=== PATIENT | female | born 1950 | race Caucasian/White ===

== ENCOUNTER 2017-10-16 20:46 | Inpatient (IN) | payer OTHER, MEDICARE ==
[~2017-10-16] VITALS: Ht 160 cm; Wt 52.3 kg
[2017-10-16] VITALS (7 sets, daily range): BP systolic 98–126; BP diastolic 66–78; PULSE 96–105; RESP 16; TEMP 98.4; O2SAT 98–100
--- NOTE | 2017-10-16 20:59 | PD ---
HPI . Unresponsive Chief Complaint: Respiratory Distress Time Seen by Provider: 20:52 Travel History International Travel<30 days: No Contact w/Intl Traveler<30days: No Traveled to known affect area: No History of Present Illness HPI Patient is a unknown aged female found unconscious unresponsive in her bed paramedics said the fire department reported pinpoint pupils and gave her Narcan 0.4 mg without any response paramedics arrived and found her unresponsive to sternal rub decided she was unsafe airway protection was indicated patient was intubated with a 2 mg of Versed and 60 mg of etomidate then after patient was intubated without reaction patient was transported to the ER became more arousable need another 2 of Versed to keep her sedated and she was then fighting the tube when she arrives in the ER patient has inability to give history or ROS due to being intubated sedated there is a history of opioid for chronic pain possibly to 0.4 mg of Narcan took a while to have any reaction and outpatient seems to be fighting the tube but needs received sedation to protect her from fighting the tube or hurting herself propofol 50 mg boluses given and then she started on 10 mcg/kg/ minute drip will be admitted to the ICU for further eval CT had urine chest x-ray and labs [facility] Social History Tobacco Use: No Allergies-Medications (Allergen,Severity, Reaction): Coded Allergies: No Known Allergies (Verified Allergy, Unknown, 10/16/17) Reported Meds & Prescriptions Reported Meds & Active Scripts Active Reported Proventil Hfa 6.7 GM Inh (Albuterol Sulfate) 90 Mcg/Act Aer 2 Puff INH Q4-6H PRN Klonopin (Clonazepam) 1 Mg Tab 1 Mg PO BID Review of Systems ROS Limitations: Intubated, Unresponsive Physical Exam Narrative GENERAL: now awaking and struggling with ET TUBE rapidly resedated SKIN: Warm and dry. HEAD: Atraumatic. Normocephalic. EYES: Pupils equal and round. No scleral icterus. No injection or drainage. ENT: ET tube in place Mucous membranes pink and moist. NECK: Trachea midline. No JVD. CARDIOVASCULAR: Regular rate and rhythm. RESPIRATORY: coarse BS in axilla bilateral GASTROINTESTINAL: Abdomen soft, non-tender, nondistended. Hepatic and splenic margins not palpable. MUSCULOSKELETAL: Extremities without clubbing, cyanosis, or edema. No obvious deformities. NEUROLOGICAL: unresponsive then mildly struggling against the tube the resedated propofol the fentanyl / versed, then obtunded agian ( sedated) Data Data Last Documented VS Vital Signs Date Time Temp Pulse Resp B/P (MAP) Pulse Ox O2 Delivery O2 Flow Rate FiO2 10/16/17 22:06 105 16 126/78 (94) 100 Ventilator 50 10/16/17 21:00 98.4 Orders Orders Complete Blood Count With Diff (10/16/17 20:52) Comprehensive Metabolic Panel (10/16/17 20:52) Creatine Kinase (Cpk) (10/16/17 20:52) Ckmb (Isoenzyme) Profile (10/16/17 20:52) Troponin I (10/16/17 20:52) Lipase (10/16/17 20:52) Urinalysis - C+S If Indicated (10/16/17 20:52) Chest, Single Ap (10/16/17 20:52) Ct Brain W/O Iv Contrast(Rout) (10/16/17 20:52) Drug Screen, Random Urine (10/16/17 20:52) Alcohol (Ethanol) (10/16/17 20:52) Salicylates (Aspirin) (10/16/17 20:52) Tylenol (Acetaminophen) (10/16/17 20:52) Propofol 1000 Mg/100 Ml Inj (Diprivan 10 (10/16/17 21:00) Propofol 1000 Mg/100 Ml Inj (Diprivan 10 (10/16/17 21:00) Urinary Catheter Management NANDO.Q8H (10/16/17 20:56) Insert Ng Tube (10/16/17 20:56) Fentanyl Drip (Fentanyl Drip) (10/16/17 21:15) Midazolam 100 Mg/100 Ml Inj (Versed Inj) (10/16/17 21:15) Lactic Acid (10/16/17 21:40) Midazolam 100 Mg/100 Ml Inj (Versed Inj) (10/16/17 22:00) CKMB (10/16/17 21:00) CKMB% (10/16/17 21:00) Fentanyl Drip (Fentanyl Drip) (10/16/17 22:00) Ct Pulmonary Angiogram (10/16/17 ) Midazolam 50 Mg/50 Ml Inj (Versed Inj) (10/16/17 21:57) Fentanyl Drip (Fentanyl Drip) (10/16/17 21:57) Admit To Inpatient (10/16/17 ) Code Status (10/16/17 22:20) Vital Signs (Adult) NANDO.Q1H (10/16/17 22:20) Activity Bed Rest (10/16/17 22:20) Elevate Head Of Bed (10/16/17 22:20) Neuro Checks . ORDERED (10/16/17 22:20) Intake + Output Q1H (10/16/17 22:20) Bedside Glucose NANDO.BGM (10/16/17 22:20) Insert Ng Tube (10/16/17 22:20) Sodium Chlor 0.9% 1000 Ml Inj (Ns 1000 M (10/16/17 22:20) Sodium Chloride 0.9% Flush (Ns Flush) (10/16/17 22:30) Sodium Chloride 0.9% Flush (Ns Flush) (10/17/17 09:00) Lansoprazole Odt (Prevacid Odt) (10/17/17 09:00) Artificial Tears Opth Soln (Tears Natura (10/17/17 09:00) Albuterol-Ipratropium Neb (Duoneb Neb) (10/17/17 00:00) Albuterol Neb (Albuterol Neb) (10/16/17 22:30) Complete Blood Count With Diff (10/17/17 04:00) Comprehensive Metabolic Panel (10/17/17 04:00) Creatine Kinase (Cpk) (10/17/17 06:00) Troponin I (10/17/17 04:00) Troponin I (10/17/17 10:00) Act Partial Throm Time (Ptt) (10/17/17 04:00) Prothrombin Time / Inr (Pt) (10/17/17 04:00) Magnesium (Mg) (10/17/17 04:00) Phosphorus (Po4) (10/17/17 04:00) Lactic Acid (10/17/17 04:00) Sputum Culture And Gram Stain (10/16/17 22:20) Chest, Single Ap (10/17/17 ) Resp Pulse Oximetry (10/16/17 22:20) Pt Request For Service (10/16/17 22:20) Tobacco Sampler / Telemetry NANDO.Q8H (10/16/17 22:20) Scd Bilateral/Knee High NANDO.BID (10/16/17 22:20) ^ Initiate Protocol (10/16/17 22:20) Instruction (10/16/17 22:20) Nursing Information ([facility] Nursing Inform (10/16/17 22:30) Chlorhexidine 2% Cloth (Chlorhexidine 2% (10/17/17 04:00) Chlorhexidine 2% Cloth (Chlorhexidine 2% (10/16/17 22:30) Mrsa Pcr Surveillance (10/16/17 22:20) Docusate Sodium-Senna (Patsy-Colace) (10/17/17 09:00) Magnesium Hydroxide Liq (Milk Of Magnesi (10/16/17 22:30) Sennosides (Senokot) (10/16/17 22:30) Bisacodyl Supp (Dulcolax Supp) (10/16/17 22:30) Lactulose Liq (Lactulose Liq) (10/16/17 22:30) Inpatient Certification (10/16/17 ) Influenzae A/B Antigen (10/16/17 22:23) Blood Culture (10/16/17 22:23) Place Ng Tube To Low Intermit (10/16/17 22:23) Bedside Glucose NANDO.Q6H (10/16/17 22:23) Blood Glucose Goal (Criteria) (10/16/17 22:23) Hypoglycemia 70 Mg/Dl Or < (10/16/17 22:23) Notify Dr: Other (10/16/17 22:23) Dextrose 50% In [place]ike (Vial) Inj (D50w (Vi (10/16/17 22:30) Glucagon Inj (Glucagon Inj) (10/16/17 22:30) Insulin Human Reg Supp Scale (Novolin R (10/17/17 00:00) Acetaminophen 650 Mg/20 Ml Liq (Tylenol (10/16/17 22:30) ^ Medication Admin Instruction (10/16/17 22:24) Notify Dr: Other (10/16/17 22:24) Potassium Chlor 40 Meq Premix (Kcl 40 Me (10/16/17 22:30) Potassium Chlor 20 Meq Premix (Kcl 20 Me (10/16/17 22:30) Potassium Chloride Eff (K-Lyte Cl Eff) (10/16/17 22:30) Potassium Chlor 40 Meq Premix (Kcl 40 Me (10/16/17 22:30) Potassium Chlor 20 Meq Premix (Kcl 20 Me (10/16/17 22:30) Magnesium Sulfate Inj (Magnesium Sulfate (10/16/17 22:30) Magnesium Oxide (Mag-Ox) (10/16/17 22:30) Magnesium Sulfate Inj (Magnesium Sulfate (10/16/17 22:30) Potassium Phosphate (K-Phos) (10/16/17 22:30) Sodium Phosphate Inj (Sodium Phosphate I (10/16/17 22:30) Potassium Phosphate (K-Phos) (10/16/17 22:30) Potassium Phosphate Inj (Potassium Phosp (10/16/17 22:30) Cefepime Inj (Maxipime Inj) (10/16/17 22:30) Azithromycin Inj (Zithromax Inj) (10/16/17 23:00) Elevate Head Of Bed (10/16/17 22:25) Chlorhexidine 0.12% Liq (Peridex 0.12% L (10/17/17 08:00) Oral Hygiene Kit (10/17/17 00:00) Resp Ventilation- Pressure (10/16/17 ) Restraints Non-Violent NANDO.Q3H (10/16/17 22:25) Ventilator Weaning Readiness NANDO.DAILY@0800 (10/16/17 22:25) Resp Spont Breath Trial (Sbt) (10/16/17 ) Arterial Blood Gas (Abg) (10/16/17 ) Propofol 1000 Mg/100 Ml Inj (Diprivan 10 (10/16/17 22:30) Midazolam 50 Mg/50 Ml Inj (Versed Inj) (10/16/17 22:30) Fentanyl Drip (Fentanyl Drip) (10/16/17 22:30) Ondansetron Odt (Zofran Odt) (10/16/17 22:30) Midazolam 50 Mg/50 Ml Inj (Versed Inj) (10/16/17 22:30) Sodium Chlor 0.9% 1000 Ml Inj (Ns 1000 M (10/16/17 22:45) Admit Order (Ed Use Only) (10/16/17 22:56) Labs Laboratory Tests Test 10/16/17 21:00 10/16/17 21:53 10/16/17 22:21 White Blood Count 11.3 TH/MM3 Red Blood Count 4.18 MIL/MM3 Hemoglobin 13.4 GM/DL Hematocrit 40.7 % Mean Corpuscular Volume 97.3 FL Mean Corpuscular Hemoglobin 32.0 PG Mean Corpuscular Hemoglobin Concent 32.8 % Red Cell Distribution Width 13.8 % Platelet Count 308 TH/MM3 Mean Platelet Volume 9.3 FL Neutrophils (%) (Auto) 63.3 % Lymphocytes (%) (Auto) 33.1 % Monocytes (%) (Auto) 2.8 % Eosinophils (%) (Auto) 0.4 % Basophils (%) (Auto) 0.4 % Neutrophils # (Auto) 7.1 TH/MM3 Lymphocytes # (Auto) 3.7 TH/MM3 Monocytes # (Auto) 0.3 TH/MM3 Eosinophils # (Auto) 0.0 TH/MM3 Basophils # (Auto) 0.0 TH/MM3 CBC Comment DIFF FINAL Differential Comment Urine Color YELLOW Urine Turbidity CLOUDY Urine pH 6.0 Urine Specific [place] 1.013 Urine Protein >=500 mg/dL Urine Glucose (UA) >=500 mg/dL Urine Ketones NEG mg/dL Urine Occult Blood SMALL Urine Nitrite NEG Urine Bilirubin NEG Urine Urobilinogen LESS THAN 2 mg/dL Urine Leukocyte Esterase NEG Urine RBC 8 /hpf Urine Mucus FEW /lpf Microscopic Urinalysis Comment CULT NOT INDICATED Blood Urea Nitrogen 11 MG/DL Creatinine 0.85 MG/DL Random Glucose 244 MG/DL Total Protein 6.6 GM/DL Albumin 3.1 GM/DL Calcium Level 7.9 MG/DL Alkaline Phosphatase 71 U/L Aspartate Amino Transf (AST/SGOT) 23 U/L Alanine Aminotransferase (ALT/SGPT) 19 U/L Total Bilirubin 0.2 MG/DL Sodium Level 139 MEQ/L Potassium Level 3.4 MEQ/L Chloride Level 105 MEQ/L Carbon Dioxide Level 20.2 MEQ/L Anion Gap 14 MEQ/L Estimat Glomerular Filtration Rate 58 ML/MIN Total Creatine Kinase 173 U/L Creatine Kinase MB 2.5 NG/ML Troponin I 0.02 NG/ML Lipase 76 U/L Salicylates Level 5.0 MG/DL Urine Opiates Screen NEG Acetaminophen Level LESS THAN 2.0 MCG/ML Urine Barbiturates Screen NEG Urine Amphetamines Screen NEG Urine Benzodiazepines Screen POS Urine Cocaine Screen NEG Urine Cannabinoids Screen NEG Ethyl Alcohol Level LESS THAN 3 MG/DL Lactic Acid Level 4.8 mmol/L Blood Gas Puncture Site RT BRACHIAL Blood Gas Patient Temperature 98.6 Blood Gas HCO3 25 mmol/L Blood Gas Base Excess -0.6 mmol/L Blood Gas Oxygen Saturation 95 % Arterial Blood pH 7.33 Arterial Blood Partial Pressure CO2 49 mmHg Arterial Blood Partial Pressure O2 204 mmHG Arterial Blood Oxygen Content 18.6 Vol % Arterial Blood Carboxyhemoglobin 2.8 % Arterial Blood Methemoglobin 1.1 % Blood Gas Hemoglobin 13.6 G/DL Oxygen Delivery Device VENTILATOR Blood Gas Ventilator Setting PRVC/AC Blood Gas Inspired Oxygen 50 % MDM Medical Decision Making Medical Screen Exam Complete: Yes Emergency Medical Condition: Yes Medical Record Reviewed: Yes Differential Diagnosis Resp failure to unresponsive, PE vs drug reaction vs opioid overdose other Narrative Course pt arrives intubated and now beginning to arouase , needs resedation to keep calm on vent and she is CT and CXR and UA and LAbs to search for cause of sudden unresponsive state , now admitted to ICU and PE study ordered, She has no obviuos finding on CXR and no signs of allergic reaction , SHe is on benzo and opioids and took bactrim possible drug reaction or combination overdose, Narcan 0.4 mg in field may have taken affect after time as she arroused after ET tube and en route Critical Care Narrative 45 minutes of cc time vent management searching for cause of unconscious state reveiw of all labs and CT and interviewing family for reasons of sudden resp failure and unresponsiveness Physician Communication Physician Communication DR CARRANZA ICU Diagnosis Primary Impression: Unresponsive episode Admitting Information Admitting Physician Requests: Admit Scripts Furosemide (Furosemide) 20 Mg Tab 20 MG PO DAILY for Shortness of Breath, #10 TAB 0 Refills Prov: Baldemar Lopez MD 10/19/17 Cefuroxime (Cefuroxime) 500 Mg Tab 500 MG PO BID for Infection, #28 TAB 0 Refills Prov: Baldemar Lopez MD 10/19/17 Prednisone (48) 10 mg tab Dose Pack (Prednisone (48) 10 mg tab Dose Pack) 10 Mg Dspk 10 MG PO DIRECTED for Inflammation, #1 DSPK 0 Refills Prov: Baldemar Lopez MD 10/19/17 Aspirin (Tgt Aspirin) 81 Mg Chw 81 MG CHEW DAILY for Blood Clot Prevention, #30 EA Prov: Baldemar Lopez MD 10/19/17 Carvedilol (Coreg) 3.125 Mg Tab 3.125 MG PO Q12HR for Blood Pressure Management, #62 TAB Prov: Baldemar Lopez MD 10/19/17 Atorvastatin (Atorvastatin) 40 Mg Tab 40 MG PO HS for Cholesterol Management, #30 TAB Prov: Baldemar Lopez MD 10/19/17 Nicotine (Eq Nicotine) 14 Mg/24 Hour Dis 1 PATCH T-DERMAL DAILY for smoking cessation, #14 PATCH Prov: Baldemar Lopez MD 10/19/17 Oxygen (O2) (Oxygen (O2)) Device LITER STEPHAN.CANULA CONTINUOUS for Prevent Hypoxemia, #3 Oxygen Concentrator Portable Gaseous 3 L/min via Nasal Canula Continuous For 99 months Prov: Baldemar Lopez MD 10/19/17 Bridger Lucia MD Oct 16, 2017 20:59
[2017-10-16] MEDS ORDERED: PROPOFOL 1000 MG/100 ML BTL IV ONE (21:00)
[2017-10-16] MEDS ORDERED: PROPOFOL 1000 MG/100 ML INJ 100 ML IV PRN ×2 (21:00→22:30)
[2017-10-16] MEDS ORDERED: fentaNYL DRIP 250 ML IV PRN ×3 (21:15→22:30)
[2017-10-16] MEDS ORDERED: MIDAZOLAM 100 MG/100 ML INJ 100 ML IV PRN ×2 (21:15→22:00)
[2017-10-16 21:34] LABS: AUTOMATED NEUTROPHIL # 7.1 TH/MM3 (1.8-7.7); BASOPHIL % 0.4 % (0.0-2.0); EOSINOPHIL % 0.4 % (0.0-4.0); HEMATOCRIT 40.7 % (35.0-46.0); HEMOGLOBIN 13.4 GM/DL (11.6-15.3); LYMPH % 33.1 % (9.0-44.0); LYMPHOCYTE # 3.7 TH/MM3 (1.0-4.8); MEAN CELL VOLUME 97.3 FL (80.0-100.0); MEAN CORPUSCULAR HGB CONC 32.8 % (32.0-36.0); MEAN PLATELET VOLUME 9.3 FL (7.0-11.0); MONO % 2.8 % (0.0-8.0); MONOCYTE # 0.3 TH/MM3 (0-0.9); NEUT % 63.3 % (16.0-70.0); PLATELET COUNT 308 TH/MM3 (150-450); RED BLOOD COUNT 4.18 MIL/MM3 (4.00-5.30); RED CELL DISTRIBUTION WIDTH 13.8 % (11.6-17.2); WHITE BLOOD COUNT 11.3 TH/MM3 (4.0-11.0)
[2017-10-16 21:46] LABS: ACETAMINOPHEN LESS THAN 2.0 MCG/ML (10.0-30.0); ALKALINE PHOSPHATASE 71 U/L (45-117); ALT (GPT) 19 U/L (10-53); TOTAL BILIRUBIN ADULT 0.2 MG/DL (0.2-1.0); TOTAL PROTEIN 6.6 GM/DL (6.4-8.2); TROPONIN I 0.02 NG/ML (0.02-0.05)
[2017-10-16 21:49] LABS: BILIRUBIN, URINE NEG (NEG); BLOOD, URINE SMALL (NEG); GLUCOSE,URINE >=500 mg/dL (NEG); KETONE, URINE NEG (NEG); MUCUS URINE FEW /lpf (OCC); NITRITE,URINE NEG (NEG); URINE COLOR YELLOW (YELLW/STRAW); URINE LEUKOCYTE ESTERASE NEG (NEG)
[2017-10-16] MEDS ORDERED: CLON1 PO (21:55)
[2017-10-16] MEDS ORDERED: ALBU6.7H INH (21:55)
[2017-10-16] MEDS ORDERED: fentaNYL DRIP 250 ML ONE (21:57)
[2017-10-16] MEDS ORDERED: MIDAZOLAM 50 MG/50 ML INJ 50 ML IV ONE ×2 (21:57→22:30)
[2017-10-16 21:59] LABS: ALBUMIN 3.1 GM/DL (3.4-5.0); AST (GOT) 23 U/L (15-37); BICARBONATE 20.2 MEQ/L (21.0-32.0); BLOOD UREA NITROGEN 11 MG/DL (7-18); CALCIUM 7.9 MG/DL (8.5-10.1); CHLORIDE 105 MEQ/L (98-107); CREATININE 0.85 MG/DL (0.50-1.00); GLOMERULAR FILTRATION RATE 58 ML/MIN (>89); GLUCOSE,RANDOM 244 MG/DL (74-106); SODIUM (NA) 139 MEQ/L (136-145)
--- NOTE | 2017-10-16 22:00 | RADRPT ---
EXAM DATE: 10/16/2017 9:55 PM EDT AGE/SEX: 89 years / Female INDICATIONS: Post intubation. CLINICAL DATA: This is the patient's initial encounter. Patient reports that signs and symptoms have been present for 1 day and indicates a pain score of Nonresponsive. MEDICAL/SURGICAL HISTORY: . Unobtainable. . Unobtainable. COMPARISON: No prior exams available for comparison. FINDINGS: A single AP view of the chest demonstrates the lungs to be symmetrically aerated without evidence of mass, infiltrate or effusion. Nasogastric tube with tip in stomach. Endotracheal tube with tip 2 cm above the manuel.. The cardiomediastinal contours are unremarkable. Osseous structures are intact. CONCLUSION: Endotracheal tube tip 2 cm above the manuel. Electronically signed by: Liban Can MD 10/16/2017 9:59 PM EDT
[2017-10-16] MEDS ORDERED: SODIUM CHLOR 0.9% 1000 ML INJ 1,000 ML IV SCH (22:20)
[2017-10-16] MEDS ORDERED: POTASSIUM PHOSPHATE MONOBASIC 500 MG TAB PO PRN (22:30)
[2017-10-16] MEDS ORDERED: LACTULOSE SYRUP 20 GM/30 ML CUP PO PRN (22:30)
[2017-10-16] MEDS ORDERED: NURSING INFORMATION XX SCH (22:30)
[2017-10-16] MEDS ORDERED: POTASSIUM PHOSPHATE MONOBASIC 500 MG TAB PO/TUBE PRN (22:30)
[2017-10-16] MEDS ORDERED: DEXTROSE 50% IN WATER 50 ML VIAL(D50) IV PUSH PRN (22:30)
[2017-10-16] MEDS ORDERED: MAGNESIUM OXIDE 400 MG TAB PO PRN (22:30)
[2017-10-16] MEDS ORDERED: MAGNESIUM HYDROXIDE SUSP 30 ML CUP PO PRN (22:30)
[2017-10-16] MEDS ORDERED: CHLORHEXIDINE GLUCONATE 2 % 1 PACK (2 CLOTHS) TOP PRN (22:30)
[2017-10-16] MEDS ORDERED: POTASSIUM CHLOR 40 MEQ PREMIX 100 ML IV PRN ×2 (22:30)
[2017-10-16] MEDS ORDERED: SODIUM CHLORIDE 0.9% FLUSH 10 ML FLUSH IV FLUSH PRN (22:30)
[2017-10-16] MEDS ORDERED: SODIUM PHOSPHATE INJ 30 MMOL in SODIUM CHLOR 0.9% 250 ML INJ 240 ML IV PRN (22:30)
[2017-10-16] MEDS ORDERED: MAGNESIUM SULFATE INJ 4 GM in SODIUM CHLORIDE 0.9% INJ 92 ML IV PRN (22:30)
[2017-10-16] MEDS ORDERED: GLUCAGON 1 MG/ML VIAL OTHER PRN (22:30)
[2017-10-16] MEDS ORDERED: ONDANSETRON ODT 4 MG TAB PO PRN (22:30)
[2017-10-16] MEDS ORDERED: MAGNESIUM SULFATE INJ 2 GM in SODIUM CHLORIDE 0.9% INJ 96 ML IV PRN (22:30)
[2017-10-16] MEDS ORDERED: SENNOSIDES 8.6 MG TAB PO PRN (22:30)
[2017-10-16] MEDS ORDERED: RESP: ALBUTEROL 2.5 MG/3 ML NEB (PRN) INH (22:30)
[2017-10-16] MEDS ORDERED: POTASSIUM PHOSPHATE INJ 30 MMOL in SODIUM CHLOR 0.9% 250 ML INJ 250 ML IV PRN (22:30)
[2017-10-16] MEDS ORDERED: POTASSIUM CHLOR 20 MEQ PREMIX 100 ML IV PRN ×2 (22:30)
[2017-10-16] MEDS ORDERED: BISACODYL 10 MG SUPP RECTAL PRN (22:30)
[2017-10-16] MEDS ORDERED: POTASSIUM CHLORIDE 25 MEQ EFFERVESCENT TAB PO PRN (22:30)
[2017-10-16] MEDS ORDERED: SODIUM CHLOR 0.9% 1000 ML INJ 1,000 ML IV ONE (22:45)
--- NOTE | 2017-10-16 22:45 | HHI.HP ---
[facility] Service Critical Care Medicine Primary Care Physician Paul Márquez, Admission Diagnosis Acute hypoxic respiratory failure Diagnosis: (1) Acute respiratory failure with hypoxia Diagnosis: Principal (2) Hypokalemia Diagnosis: Secondary (3) Hypoalbuminemia Diagnosis: Secondary (4) Lactic acidosis Diagnosis: Principal (5) Hyperglycemia Diagnosis: Secondary (6) Leukocytosis Diagnosis: Principal (7) COPD (chronic obstructive pulmonary disease) Diagnosis: Principal (8) Tobacco abuse Diagnosis: Principal (9) Chronic low back pain Diagnosis: Secondary (10) Chronic prescription benzodiazepine use Diagnosis: Secondary Chief Complaint: Admitted from home intubated Travel History International Travel<30 Days: No Contact w/Intl Traveler <30 Da: No Traveled to Known Affected Are: No History of Present Illness This is a 67-year-old female. Actual name is Vivienne Desai. She is 67 years old. The admission 10/16/2017. Past medical history includes COPD/ ongoing tobaccoism, chronic benzodiazepine use and low back pain. She presents to [facility] following history. Today, patient went to the physician's office where she received a prescription for sulfamethoxazole/trimethoprim and received an injectable antibiotic. She and her significant other went to lunch this afternoon patient became acutely short of breath after ingesting her Bactrim and complained of pruritis. At some point she "passed out". When EVAC right patient has saturations in the 50s. Patient received etomidate and midazolam for intubation. Patient also received 0.4 mg of naloxone with minimal response. Chest x-ray revealed hyperinflated lungs with no acute findings. Patient is a pending CT brain and CT pulmonary antrum pending. PH revealed 7.32, PCO2 48.5. PO2 of 204. Bicarbonate of 25. Base index -1. Laboratories reveal leukocytosis, blood sugar greater than 200, urine drug screen positive for benzodiazepines only. She is currently requiring 3 sedative /analgesics at the present time on the ventilator Review of Systems ROS Limitations: Intubated Past Family Social History Allergies: Coded Allergies: No Known Allergies (Verified Allergy, Unknown, 10/16/17) Past Medical History COPD Ongoing tobaccoism greater than 2 packs per day 40 years Low back pain/thoracic -evaluated by Dr. Ya in the past Chronic benzodiazepine use Past Surgical History Left salivary gland tumor removal Hysterectomy Reported Medications Albuterol 6.7 gram inhaler 2 puffs every 4-6 hours as needed Clonazepam 1 mg by mouth twice daily Active Ordered Medications Reviewed in EMR Family History Positive for bone cancer myocardial infarction Social History 2 pack per days tobacco 40 years. Occasional alcohol use. Denies illicit drug use per Physical Exam Vital Signs Vital Signs Date Time Temp Pulse Resp B/P (MAP) Pulse Ox O2 Delivery O2 Flow Rate FiO2 10/16/17 22:06 105 16 126/78 (94) 100 Ventilator 50 10/16/17 21:32 102 16 114/66 (82) 100 Ventilator 50 10/16/17 21:00 98.4 101 16 110/78 (89) 98 50 10/16/17 20:50 100 50 Physical Exam GENERAL: 67-year-old female currently orotracheally intubated SKIN: Warm and dry. No rash ecchymoses bilateral upper extremities HEAD: Atraumatic. Normocephalic. EYES: Pupils equal and round. About 3 mm bilaterally and reactive no scleral icterus. No injection or drainage. ENT: No nasal bleeding or discharge. Mucous membranes pink and moist. NECK: Trachea midline. No JVD. CARDIOVASCULAR: Tachycardic, RR. S1, S2 no S4. Without murmur RESPIRATORY: No accessory muscle use. Diminished breath sounds but essentially clear to auscultation anteriorly. No crackles appreciated. GASTROINTESTINAL: Abdomen soft, non-tender, nondistended. Hypoactive bowel sounds appreciated. MUSCULOSKELETAL: Extremities without significant peripheral edema. No obvious deformities. NEUROLOGICAL: Cranial nerves II through XII appear to be grossly intact. Positive gag and cough. Positive corneal reflex. Moves all 4 extremities spontaneously but not to command. Currently on midazolam, propofol and fentanyl drips Laboratory Laboratory Tests Test 10/16/17 21:00 10/16/17 21:53 10/16/17 22:21 White Blood Count 11.3 Red Blood Count 4.18 Hemoglobin 13.4 Hematocrit 40.7 Mean Corpuscular Volume 97.3 Mean Corpuscular Hemoglobin 32.0 Mean Corpuscular Hemoglobin Concent 32.8 Red Cell Distribution Width 13.8 Platelet Count 308 Mean Platelet Volume 9.3 Neutrophils (%) (Auto) 63.3 Lymphocytes (%) (Auto) 33.1 Monocytes (%) (Auto) 2.8 Eosinophils (%) (Auto) 0.4 Basophils (%) (Auto) 0.4 Neutrophils # (Auto) 7.1 Lymphocytes # (Auto) 3.7 Monocytes # (Auto) 0.3 Eosinophils # (Auto) 0.0 Basophils # (Auto) 0.0 CBC Comment DIFF FINAL Differential Comment Urine Color YELLOW Urine Turbidity CLOUDY Urine pH 6.0 Urine Specific [place] 1.013 Urine Protein >=500 Urine Glucose (UA) >=500 Urine Ketones NEG Urine Occult Blood SMALL Urine Nitrite NEG Urine Bilirubin NEG Urine Urobilinogen LESS THAN 2 Urine Leukocyte Esterase NEG Urine RBC 8 Urine Mucus FEW Microscopic Urinalysis Comment CULT NOT INDICATED Blood Urea Nitrogen 11 Creatinine 0.85 Random Glucose 244 Total Protein 6.6 Albumin 3.1 Calcium Level 7.9 Alkaline Phosphatase 71 Aspartate Amino Transf (AST/SGOT) 23 Alanine Aminotransferase (ALT/SGPT) 19 Total Bilirubin 0.2 Sodium Level 139 Potassium Level 3.4 Chloride Level 105 Carbon Dioxide Level 20.2 Anion Gap 14 Estimat Glomerular Filtration Rate 58 Total Creatine Kinase 173 Creatine Kinase MB 2.5 Troponin I 0.02 Lipase 76 Salicylates Level 5.0 Urine Opiates Screen NEG Acetaminophen Level LESS THAN 2.0 Urine Barbiturates Screen NEG Urine Amphetamines Screen NEG Urine Benzodiazepines Screen POS Urine Cocaine Screen NEG Urine Cannabinoids Screen NEG Ethyl Alcohol Level LESS THAN 3 Blood Gas Puncture Site RT BRACHIAL Blood Gas Patient Temperature 98.6 Blood Gas HCO3 25 Blood Gas Base Excess -0.6 Blood Gas Oxygen Saturation 95 Arterial Blood pH 7.33 Arterial Blood Partial Pressure CO2 49 Arterial Blood Partial Pressure O2 204 Arterial Blood Oxygen Content 18.6 Arterial Blood Carboxyhemoglobin 2.8 Arterial Blood Methemoglobin 1.1 Blood Gas Hemoglobin 13.6 Oxygen Delivery Device VENTILATOR Blood Gas Ventilator Setting PRVC/AC Blood Gas Inspired Oxygen 50 Result Diagram: 10/16/17209910/16/172099 Imaging Last Impressions Chest X-Ray 10/16/172051 Signed Impressions: CONCLUSION: Endotracheal tube tip 2 cm above the manuel. Septic Shock Reassessment Septic shock perfusion: reassessment completed Caprini VTE Risk Assessment Caprini VTE Risk Assessment: Mod/High Risk (score >= 2) Caprini Risk Assessment Model Point Value = 1 Point Value = 2 Point Value = 3 Point Value = 5 Age 41-60 Minor surgery BMI > 25 kg/m2 Swollen legs Varicose veins or History of unexplained or recurrent spontaneous Oral contraceptives or hormone replacement Sepsis (< 1 month) Serious lung disease, including pneumonia (< 1 month) Abnormal pulmonary function Acute myocardial infarction Congestive heart failure (< 1 month) History of inflammatory bowel disease Medical patient at bed rest Age 61-74 Arthroscopic surgery Major open surgery (> 45 min) Laparoscopic surgery (> 45 min) Malignancy Confined to bed (> 72 hours) Immobilizing plaster cast Central venous access Age >= 75 History of VTE Family history of VTE Factor V Leiden Prothrombin [id number] Lupus anticoagulant Anticardiolipin antibodies Elevated serum homocysteine Heparin-induced thrombocytopenia Other congenital or acquired thrombophilia Stroke (< 1 month) Elective arthroplasty Hip, pelvis, or leg fracture Acute spinal cord injury (< 1 month) Prophylaxis Regimen Total Risk Factor Score Risk Level Prophylaxis Regimen 0-1 Low Early ambulation 2 Moderate Order ONE of the following: *Sequential Compression Device (SCD) *Heparin 5000 units SQ BID 3-4 Higher Order ONE of the following medications: *Heparin 5000 units SQ TID *Enoxaparin/Lovenox 40 mg SQ daily (WT < 150 kg, CrCl > 30 mL/min) *Enoxaparin/Lovenox 30 mg SQ daily (WT < 150 kg, CrCl > 10-29 mL/min) *Enoxaparin/Lovenox 30 mg SQ BID (WT < 150 kg, CrCl > 30 mL/min) AND/OR *Sequential Compression Device (SCD) 5 or more Highest Order ONE of the following medications: *Heparin 5000 units SQ TID (Preferred with Epidurals) *Enoxaparin/Lovenox 40 mg SQ daily (WT < 150 kg, CrCl > 30 mL/min) *Enoxaparin/Lovenox 30 mg SQ daily (WT < 150 kg, CrCl > 10-29 mL/min) *Enoxaparin/Lovenox 30 mg SQ BID (WT < 150 kg, CrCl > 30 mL/min) AND *Sequential Compression Device (SCD) Assessment and Plan Assessment and Plan Neuro/Psych: Chronic benzodiazepine use Patient is currently on propofol/fentanyl and midazolam drips for sedation/ analgesia while intubated Goal of RASS -2 Daily sedation vacation Acetaminophen 650 mg by tube every 6 hours as needed fever CT brain currently pending Patient is on clonazepam 1 mg twice daily at home CV: Sinus tachycardia Lactic acidosis Patient is currently on normal saline at 84 cc an hour Currently not requiring vasopressors and/or antihypertensives Troponin initial 0.02. EKG will be repeated along with troponin in a.m. Repeat lactic acid in a.m. Resp: Acute hypoxic respiratory failure History of COPD Ongoing tobaccoism [facility] 475/05/03/49 Ventilator bundle Albuterol/ipratropium aerosols every 4 hours with albuterol aerosols every 2 hours as needed dyspnea Spontaneous breathing trials in a.m. Chest x-ray revealed no acute cardiopulmonary findings. ET tube [address] pulmonary angiogram ordered by ER physician Tobacco cessation self-evaluation but will be provided to patient GI: Hypoalbuminemia Patient is currently n.p.o. with OG tube in place Lansoprazole for GI prophylaxis Docusate sodium/senna 1 tablet twice daily for bowel regimen : Kramer catheter has been placed for accurate I's and O's in a critically ill patient Endo: Hyperglycemia Sliding scale insulin with Novulin with Accu-Cheks every 6 hours to maintain euglycemia/medium regimen Renal: Creatinine currently within normal limits Monitor urine output Accurate I's and O Heme: Leukocytosis Monitor CBC in a.m. Check coags ID: Possible community acquired pneumonia Currently on cefepime and azithromycin day #1 Blood cultures 2, sputum and influenza a ordered UA no acute findings for infection FEN: Hypopotassemia Replace electrolytes per ICU electrolyte protocol MSK: Chronic thoracic back pain PT evaluate and treat Access -Utilize peripheral IV. Central line if indicated Prophylax -GI -lansoprazole -DVT -SCD/holding pharmacological prophylaxis pending CT brain Level 3 admission Code Status Full code Discussed Condition With Significant other Eliud Desai.. Dr. Lucia/ED physician. Care plan discussed and all questions answered. Problem Qualifiers (1) Leukocytosis: Qualified Codes: D72.829 - Elevated white blood cell count, unspecified (2) COPD (chronic obstructive pulmonary disease): Qualified Codes: J44.9 - Chronic obstructive pulmonary disease, unspecified (3) Chronic low back pain: Qualified Codes: M54.5 - Low back pain; G89.29 - Other chronic pain Iker Wade MD Oct 16, 2017 22:45
[2017-10-16] MEDS: CEFEPIME INJ 2,000 MG in SODIUM CHLORIDE 0.9% INJ 100 ML IV SCH (22:53)
[2017-10-16] MEDS: MIDAZOLAM 50 MG/50 ML INJ 50 ML IV PRN (23:31)
[2017-10-16] MEDS ORDERED: IOHEXOL 350 MG/ML 10 ML VIAL (for RAD DIAG) IVCONTRAST ONE (23:50)
--- NOTE | 2017-10-16 23:54 | RADRPT ---
EXAM DATE: 10/16/2017 11:48 PM EDT AGE/SEX: 89 years / Female INDICATIONS: Shortness of breath. CLINICAL DATA: This is the patient's initial encounter. Patient reports that signs and symptoms have been present for 1 day and indicates a pain score of Nonresponsive. MEDICAL/SURGICAL HISTORY: None. None. RADIATION DOSE: 10.21 CTDI (mGy) COMPARISON: No prior exams available for comparison. TECHNIQUE: Volumetric scanning was performed using a multi-row detector CT scanner during bolus infu wilner of 75 ml Omnipaque 350 (iohexol) nonionic water-soluble contrast as a single exam dose. The mars a was post processed with a variety of visualization algorithms including full volume maximum intensi ty projection and sliding thin slab reformation. Using automated exposure control and adjustment of t he mA and/or kV according to patient size, radiation dose was kept as low as reasonably achievable to obtain optimal diagnostic quality images. DICOM format image data is available electronically for r eview and comparison. FINDINGS: Pulmonary Arteries: No filling defects are seen in the pulmonary arteries out to the subsegmental ve ssels. The left and right pulmonary arteries are normal in diameter. Lung: No infiltrates seen except for rounded infiltrate in the lingula measuring 1.5 x 2.9 cm. Bronc hiectasis both lower lungs with areas of mucous plugging bilaterally Effusion: None. Mediastinum: No evidence of mediastinal or hilar adenopathy. Other: The axilla is unremarkable. CONCLUSION: 1. Rounded infiltrate within the lingula. No evidence of pulmonary embolism. Chronic bronchiectasis and bilateral mucous plugging in the medial lung bases. Electronically signed by: Avelino Moran MD 10/16/2017 11:53 PM EDT
--- NOTE | 2017-10-16 23:56 | RADRPT ---
EXAM DATE: 10/16/2017 11:45 PM EDT AGE/SEX: 89 years / Female INDICATIONS: Altered mental status. CLINICAL DATA: This is the patient's initial encounter. Patient reports that signs and symptoms have been present for 1 day and indicates a pain score of 5/10. MEDICAL/SURGICAL HISTORY: None. None. RADIATION DOSE: 56.35 CTDI (mGy) COMPARISON: No prior exams available for comparison. TECHNIQUE: CT of the head without contrast. Using automated exposure control and adjustment of the mA and/or kV according to patient size, radiation dose was kept as low as reasonably achievable to ob tain optimal diagnostic quality images. DICOM format image data is available electronically for revi ew and comparison. FINDINGS: Cerebrum: The ventricles are normal for age. No evidence of midline shift, mass lesion, hemorrhage or acute infarction. No extraaxial fluid collections are seen. Posterior Fossa: The cerebellum and brainstem are intact. The 4th ventricle is midline. The cerebe llopontine angle is unremarkable. Extracranial: The visualized portion of the orbits is intact. Skull: The calvaria is intact. No evidence of skull fracture. CONCLUSION: 1. Negative CT Head non contrast. Electronically signed by: Avelino Moran MD 10/16/2017 11:55 PM EDT
[2017-10-17] VITALS (28 sets, daily range): BP systolic 78–135; BP diastolic 49–103; PULSE 79–116; RESP 16–31; TEMP 97.8–99.4; O2SAT 92–100
[2017-10-17] MEDS: RESP: ALBUTEROL 2.5 MG/IPRATROPIUM 0.5 MG NEB (SCH) INH ×6 (00:19→19:29)
[2017-10-17] MEDS: AZITHROMYCIN INJ 500 MG in SODIUM CHLOR 0.9% 250 ML INJ 250 ML IV SCH ×2 (00:22→21:43)
[2017-10-17] MEDS ORDERED: LACTATED RINGER'S 1000 ML INJ 1,000 ML IV ONE ×2 (01:15→04:30)
[2017-10-17] MEDS ORDERED: SODIUM CHLOR 0.9% 1000 ML INJ 1,000 ML IV ONE (01:15)
[2017-10-17] MEDS ORDERED: VANCOMYCIN INJ 1,000 MG in SODIUM CHLOR 0.9% 250 ML INJ 250 ML IV ONE (01:15)
[2017-10-17] MEDS: MIDAZOLAM 50 MG/50 ML INJ 50 ML IV PRN (02:21)
[2017-10-17] MEDS: CHLORHEXIDINE GLUCONATE 2 % 1 PACK (2 CLOTHS) TOP SCH (04:00)
[2017-10-17] MEDS ORDERED: ALBUMIN 25% INJ 50 ML IV ONE (04:30)
[2017-10-17] MEDS ORDERED: DEXMEDETOMIDINE INJ 200 MCG in SODIUM CHLORIDE 0.9% INJ 50 ML IV PRN (04:30)
[2017-10-17 04:36] LABS: AUTOMATED NEUTROPHIL # 10.5 TH/MM3 (1.8-7.7); BASOPHIL % 0.1 % (0.0-2.0); EOSINOPHIL # 0.1 TH/MM3 (0-0.4); EOSINOPHIL % 0.8 % (0.0-4.0); HEMATOCRIT 34.6 % (35.0-46.0); HEMOGLOBIN 11.3 GM/DL (11.6-15.3); LYMPH % 15.7 % (9.0-44.0); LYMPHOCYTE # 2.2 TH/MM3 (1.0-4.8); MEAN CELL VOLUME 97.2 FL (80.0-100.0); MEAN CORPUSCULAR HEMOGLOBIN 31.7 PG (27.0-34.0); MEAN CORPUSCULAR HGB CONC 32.6 % (32.0-36.0); MEAN PLATELET VOLUME 8.2 FL (7.0-11.0); MONO % 6.9 % (0.0-8.0); NEUT % 76.5 % (16.0-70.0); PLATELET COUNT 200 TH/MM3 (150-450); RED BLOOD COUNT 3.56 MIL/MM3 (4.00-5.30); WHITE BLOOD COUNT 13.8 TH/MM3 (4.0-11.0)
[2017-10-17 04:48] LABS: INTERNATIONAL NORMALIZED RATIO 1.1 RATIO; PROTHROMBIN TIME - PATIENT 11.1 SEC (9.8-11.6)
--- NOTE | 2017-10-17 04:52 | RADRPT ---
EXAM DATE: 10/17/2017 4:28 AM EDT AGE/SEX: 89 years / Female INDICATIONS: Shortness of breath, possible pulmonary disease. CLINICAL DATA: This is the patient's subsequent encounter. Patient reports that signs and symptoms h ave been present for 2 days and indicates a pain score of Nonresponsive. MEDICAL/SURGICAL HISTORY: None. None. [place] [facility] [place]. . FINDINGS: A single AP view of the chest demonstrates the lungs to be symmetrically aerated without evidence of mass, infiltrate or effusion. The cardiomediastinal contours are unremarkable. Osseous structures a re intact. Nasogastric tube is in good position. ET tube is in good position. CONCLUSION: Lungs are grossly clear. ET tube in good position Electronically signed by: Avelino Moran MD 10/17/2017 4:51 AM EDT
[2017-10-17 05:03] LABS: ALBUMIN 2.4 GM/DL (3.4-5.0); BICARBONATE 22.1 MEQ/L (21.0-32.0); CALCIUM 7.1 MG/DL (8.5-10.1); CREATININE 0.56 MG/DL (0.50-1.00); MAGNESIUM 2.1 MG/DL (1.5-2.5); PHOSPHORUS 3.5 MG/DL (2.5-4.9); TOTAL BILIRUBIN ADULT 0.2 MG/DL (0.2-1.0); TOTAL PROTEIN 5.4 GM/DL (6.4-8.2)
[2017-10-17 05:04] LABS: TROPONIN I 0.9 NG/ML (0.02-0.05)
[2017-10-17] MEDS: LACTATED RINGER'S 1000 ML INJ 1,000 ML IV SCH ×2 (05:30→15:47)
[2017-10-17] MEDS ORDERED: ASPIRIN 81 MG CHEW TAB CHEW ONE (05:30)
[2017-10-17] MEDS: INSULIN NovoLIN REGULAR SUPPLEMENTAL SCALE SQ SCH ×5 (06:00→23:22)
[2017-10-17] MEDS ORDERED: CALCIUM GLUCONATE INJ 1 GM in SODIUM CHLORIDE 0.9% INJ 100 ML IV ONE (06:00)
[2017-10-17] MEDS: CEFEPIME INJ 2,000 MG in SODIUM CHLORIDE 0.9% INJ 100 ML IV SCH ×3 (06:02→21:43)
[2017-10-17] MEDS: HEPARIN SODIUM - SQ 10,000 UNITS/ML VIAL SQ SCH ×3 (06:02→21:43)
--- NOTE | 2017-10-17 06:40 | HHI.CCPN ---
Subjective Remarks/Hospital Course This is a 67-year-old female. Actual name is Vivienne Desai. She is 67 years old. Date of admission 10/16/2017. Past medical history includes COPD/ongoing tobaccoism, chronic benzodiazepine use and low back pain. She presents to [facility] following history. Today, patient went to the physician's office where she received a prescription for sulfamethoxazole/ trimethoprim and received an injectable antibiotic. She and her significant other went to lunch this afternoon patient became acutely short of breath after ingesting her Bactrim and complained of pruritis. At some point she "passed out ". When EVAC right patient has saturations in the 50s. Patient received etomidate and midazolam for intubation. Patient also received 0.4 mg of naloxone with minimal response. Chest x-ray revealed hyperinflated lungs with no acute findings. Patient is a pending CT brain and CT pulmonary antrum pending. PH revealed 7.32, PCO2 48.5. PO2 of 204. Bicarbonate of 25. Base index -1. Laboratories reveal leukocytosis, blood sugar greater than 200, urine drug screen positive for benzodiazepines only. She is currently requiring 3 sedative /analgesics at the present time on the ventilator SUBJ 10/17: Remains intubated sedated. Currently on Precedex but wakes up easily following commands. Tolerating CPAP Objective Vital Signs Date Time Temp Pulse Resp B/P (MAP) Pulse Ox O2 Delivery O2 Flow Rate FiO2 10/17/17 06:00 82 10/17/17 04:55 98 30 10/17/17 04:00 98.9 16 79/52 (61) 10/16/17 23:45 Ventilator Intake and Output 10/17/17 10/17/17 10/18/17 08:00 16:00 00:00 Intake Total 3700 ml Output Total 540 ml Balance 3160 ml Result Diagram: 10/17/17 0413 10/17/17 0413 Other Results Microbiology Date/Time Source Procedure Growth Status 10/16/17 22:35 Nasal Aspirate Influenza Types A,B Antigen (NAZ) - Final NEGATIVE FOR FLU A AND B ANTIGEN.... Complete Laboratory Tests Test 10/16/17 22:21 Blood Gas Puncture Site RT BRACHIAL Blood Gas Patient Temperature 98.6 Blood Gas HCO3 25 mmol/L (22-26) Blood Gas Base Excess -0.6 mmol/L (-2-2) Blood Gas Oxygen Saturation 95 % (90-100) Arterial Blood pH 7.33 (7.380-7.420) Arterial Blood Partial Pressure CO2 49 mmHg (38-42) Arterial Blood Partial Pressure O2 204 mmHG (61-120) Arterial Blood Oxygen Content 18.6 Vol % (12.0-20.0) Arterial Blood Carboxyhemoglobin 2.8 % (0-4) Arterial Blood Methemoglobin 1.1 % (0-2) Blood Gas Hemoglobin 13.6 G/DL (12.0-16.0) Oxygen Delivery Device VENTILATOR Blood Gas Ventilator Setting [facility]/ Blood Gas Inspired Oxygen 50 % Imaging Last Impressions Chest X-Ray 10/16/172051 Signed Impressions: CONCLUSION: Endotracheal tube tip 2 cm above the manuel. Objective Remarks GENERAL: 67-year-old female currently orotracheally intubated SKIN: Warm and dry. No rash ecchymoses bilateral upper extremities HEAD: Atraumatic. Normocephalic. EYES: Pupils equal and round. About 3 mm bilaterally and reactive no scleral icterus. No injection or drainage. ENT: No nasal bleeding or discharge. ET tube in place NECK: Trachea midline. No JVD. CARDIOVASCULAR: Tachycardic, RR. S1, S2 no S4. Without murmur RESPIRATORY: Diminished breath sounds but essentially clear to auscultation anteriorly. No crackles appreciated. GASTROINTESTINAL: Abdomen soft, non-tender, nondistended. Hypoactive bowel sounds appreciated. MUSCULOSKELETAL: Extremities without significant peripheral edema. No obvious deformities. NEUROLOGICAL: Currently sedated with Precedex, wakes up easily follows commands x4. Moves all 4 extremities spontaneously A/P Assessment and Plan Neuro/Psych: Chronic benzodiazepine use Altered mental status Patient is currently on Precedex Goal of RASS -1 Daily sedation vacation Acetaminophen 650 mg by tube every 6 hours as needed fever CT brain negative for acute finding Patient is on clonazepam 1 mg twice daily at home CV: Elevated troponin/NSTEMI Sinus tachycardia Lactic acidosis Currently not requiring vasopressors and/or antihypertensives Troponin initial 0.02, repeat 0.90. Placed on scheduled aspirin and Lipitor Cardiology consult and 2D echo pending Cannot use beta-easton due to hypotension Repeat lactic acid in a.m is normal Resp: Acute hypoxic respiratory failure COPD with exacerbation Ongoing tobaccoism [facility] /05/03/49, now tolerating CPAP SBT with possible extubation Ventilator bundle Albuterol/ipratropium aerosols every 4 hours with albuterol aerosols every 2 hours as needed dyspnea Start IV Solu Medrol 60 every 12 for COPD exacerbation Chest x-ray revealed no acute cardiopulmonary findings. ET tube [address] pulmonary angiogram ordered by ER physician-lingular infiltrate, basilar mucous plugging and chronic bronchiectasis Tobacco cessation self-evaluation but will be provided to patient GI: Hypoalbuminemia Patient is currently n.p.o. with OG tube in place Lansoprazole for GI prophylaxis Docusate sodium/senna 1 tablet twice daily for bowel regimen : Kramer catheter has been placed for accurate I's and O's in a critically ill patient Endo: Hyperglycemia Sliding scale insulin with Novolin with Accu-Cheks every 6 hours to maintain euglycemia/medium regimen Renal: Creatinine currently within normal limits Monitor urine output Accurate I's and O Heme: Leukocytosis Monitor CBC in a.m. Check coags ID: Community acquired pneumonia Currently on cefepime and azithromycin day #2 Blood cultures 2, sputum and influenza a ordered-will follow up UA no acute findings for infection FEN: Hypopotassemia Replace electrolytes per ICU electrolyte protocol MSK: Chronic thoracic back pain PT evaluate and treat Access -Utilize peripheral IV. Central line if indicated Prophylax -GI -lansoprazole -DVT -SCD/holding pharmacological prophylaxis pending CT brain Level 3 Rodger Parsons MD Oct 17, 2017 06:40
[2017-10-17 08:10] LABS: CHOLESTEROL/ HDL RATIO 2.64 RATIO; HDL CHOLESTEROL 35.9 MG/DL (40.0-60.0)
[2017-10-17] MEDS: methylPREDNISolone SOD SUCC 125 MG/2 ML VIAL IV PUSH SCH ×2 (08:21→19:48)
[2017-10-17] MEDS: ASPIRIN 81 MG CHEW TAB CHEW SCH (08:21)
[2017-10-17] MEDS: CHLORHEXIDINE 0.12% (ORAL KIT) 15 ML CUP MT SCH ×2 (08:21→19:48)
[2017-10-17] MEDS: DOCUSATE SODIUM 50 MG/SENNA 8.6 MG TAB PO SCH ×2 (08:21→19:48)
[2017-10-17] MEDS: LANSOPRAZOLE SOLUTAB 30 MG TAB G-TUBE SCH (08:21)
[2017-10-17] MEDS: SODIUM CHLORIDE 0.9% FLUSH 10 ML FLUSH IV FLUSH SCH ×2 (08:21→19:48)
[2017-10-17] MEDS: ARTIFICIAL TEARS OPTH SOLN 15 ML BTL EACH EYE SCH ×3 (09:00→16:35)
[2017-10-17] MEDS: REMOVE OLD PATCH T-DERMAL SCH (10:45)
[2017-10-17] MEDS: NICOTINE 14 MG/24 HR PATCH T-DERMAL SCH (11:28)
[2017-10-17 12:41] LABS: TROPONIN I 0.47 NG/ML (0.02-0.05)
--- NOTE | 2017-10-17 13:07 | ECHRPT ---
Indication: HYPERTENSIVE HEART DISEASE CONCLUSIONS The left ventricular systolic function is normal with an estimated ejection fraction in the range of 60-65%. Normal left ventricular size. Wall thickness is normal. No regional wall motion abnormalities are present. The tricuspid valve is not well visualized. There is trace tricuspid valve regurgitation. The estimated pulmonary arterial pressure is 29.9 mmHg. BP: / HR: Rhythm: Sinus MEASUREMENTS (Male / Female) Normal Values Technical Quality:Technically difficult study 2D ECHO LVOT Diameter 1.7 cm LV Ejection Fraction MOD 4C 62.7 % LV Ejection Fraction 4C AL 65.7 % M-MODE Aortic Root Diameter MM 1.8 cm AV Cusp Separation MM 1.3 cm DOPPLER AV Peak Velocity 159.5 cm/s AV Peak Gradient 10.2 mmHg LVOT Peak Velocity 109.0 cm/s LVOT Peak Gradient 4.8 mmHg AV Area Cont Eq pk 1.6 cm MV Area PHT 4.5 cm Mitral E Point Velocity 94.8 cm/s Mitral A Point Velocity 110.0 cm/s Mitral E to A Ratio 0.9 LV E' Lateral Velocity 10.7 cm/s Mitral E to LV E' Lateral Ratio 8.9 LV E' Septal Velocity 6.6 cm/s Mitral E to LV E' Septal Ratio 14.3 TR Peak Velocity 223.0 cm/s TR Peak Gradient 19.9 mmHg Right Atrial Pressure 10.0 mmHg Pulmonary Artery Systolic Pressu 29.9 mmHg Right Ventricular Systolic Press 29.9 mmHg PV Peak Velocity 93.7 cm/s PV Peak Gradient 3.5 mmHg FINDINGS LEFT VENTRICLE The left ventricular systolic function is normal with an estimated ejection fraction in the range of 60-65%. Normal left ventricular size. Wall thickness is normal. No regional wall motion abnormalities are present. RIGHT VENTRICLE Normal right ventricular size and systolic function. LEFT ATRIUM The left atrial size is normal. RIGHT ATRIUM The right atrial size is normal. ATRIAL SEPTUM Normal atrial septal thickness without atrial level shunting by limited color doppler interrogation. AORTA The aortic root and proximal ascending aorta are normal in size on limited imaging. MITRAL VALVE Structurally normal mitral valve. No mitral valve stenosis or regurgitation. AORTIC VALVE Trileaflet aortic valve. No aortic valve stenosis or regurgitation. TRICUSPID VALVE The tricuspid valve is not well visualized. There is trace tricuspid valve regurgitation. The estimated pulmonary arterial pressure is 29.9 mmHg. PULMONARY VALVE No pulmonary valve regurgitation or stenosis. VESSELS The inferior vena cava is normal in size. PERICARDIUM No pericardial effusion. Earnest Cat MD, FACC, FSCAI (Electronically Signed) Final Date:17 October 2017 13:06
[2017-10-17] MEDS ORDERED: METOPROLOL TARTRATE 5 MG/5 ML VIAL ONE (15:36)
[2017-10-17] MEDS ORDERED: METOPROLOL TARTRATE 5 MG/5 ML VIAL IV PUSH ONE ×2 (16:00)
--- NOTE | 2017-10-17 18:31 | EKG ---
Date Performed: 10/16/2017 Time Performed: 22:45:58 PTAGE: 89 years EKG: SINUS TACHYCARDIA MODERATE ST DEPRESSION ABNORMAL ECG NO PREVIOUS TRACING DOCTOR: Mitra Koehler Interpretating Date/Time 10/17/2017 18:30:35
--- NOTE | 2017-10-17 18:33 | EKG ---
Date Performed: 10/17/2017 Time Performed: 07:32:13 PTAGE: 89 years EKG: Sinus rhythm LOW QRS VOLTAGE IN EXTREMITY LEADS BORDERLINE ECG INTERPRETATION BASED ON A DEFAULT AGE OF 40 YEARS Since the PREVIOUS TRACING , no significant change noted PREVIOUS TRACIN10/16/2017 22.45.58 DOCTOR: Mitra Koehler Interpretating Date/Time 10/17/2017 18:31:26
[2017-10-17] MEDS: ATORVASTATIN 40 MG TAB PO SCH (19:48)
[2017-10-17] MEDS: clonazePAM 1 MG TAB PO SCH (21:42)
--- NOTE | 2017-10-17 23:31 | MB ---
cc: Pradip Lynn Vincent G DO DATE: 10/17/2017 REASON FOR CONSULTATION: Elevated troponin, respiratory failure. HISTORY OF PRESENT ILLNESS: Brenda Lambert whose actual name is Vivienne Desai, is a pleasant 67-year-old female who presented to [facility] Emergency Room after acute respiratory failure. She was seen in her physician's office yesterday and was prescribed Bactrim as well as an injectable antibiotic for a UTI. She went to lunch and took the Bactrim and became acutely short of breath around 5 minutes afterwards. During that time, she complained of pruritus. At some point during this, she passed out and, when EVAC arrived, she had oxygen saturations in the 50s. She was given etomidate and Versed and intubated. During her workup, she was found to have an elevated troponin of 0.90. She was extubated this morning and in seeing her, she states that she no longer has shortness of breath and feels overall well. When speaking to her about her history, she states that she has no chest pain and has some mild chronic shortness of breath. She does get a feeling in the center of her chest, which her primary care physician told her that she had reflux. She is unsure if this is related to food or activity. She feels like something gets stuck in the middle of her chest. PAST MEDICAL HISTORY: 1. COPD. 2. Tobacco abuse. 3. Low back pain. 4. Chronic benzodiazepine use. PAST SURGICAL HISTORY: 1. Left salivary gland tumor removal. 2. Hysterectomy. ALLERGIES: NO KNOWN DRUG ALLERGIES. MEDICATIONS: 1. Albuterol 2 puffs every 4-6 hours as needed for shortness of breath. 2. Klonopin 1 mg b.i.d. FAMILY HISTORY: Denies sudden cardiac within the family. SOCIAL HISTORY: The patient smokes 2 packs a day for 40 years. She occasionally uses alcohol. Denies drug abuse. REVIEW OF SYSTEMS: Fourteen systems were reviewed including osteopathic. Pertinent positives and negatives as above, otherwise negative. PHYSICAL EXAMINATION: VITAL SIGNS: Temperature 99.4, heart rate 97, blood pressure 118/65, respirations 20, pulse oximetry 98% on 2 liters. GENERAL: The patient appears well in no acute distress, alert, awake and oriented x3. HEENT: Extraocular muscles intact. Mucous membranes moist. NECK: Supple. No JVD at 45 degrees. No carotid bruits heard bilaterally. Carotid upstroke is brisk in nature. HEART: Regular rate and rhythm. Positive first and second heart sounds with no noted murmurs, gallops or rubs. LUNGS: Decreased breath sounds bilaterally, but no overt wheezes, rales or rhonchi. ABDOMEN: Soft, nontender, nondistended. No organomegaly noted. EXTREMITIES: Show no clubbing, cyanosis or edema. Femoral and distal pulses intact bilaterally. NEUROLOGIC: No focal deficits. SKIN: Warm, dry and intact. OSTEOPATHIC: No kyphoscoliosis, lordosis or paraspinal tender points. LABORATORY DATA: Hemoglobin 11.3, hematocrit 34.6, platelets 200. Potassium 4.0, BUN 10, creatinine 0.56. Lactic acid 4.8, troponin 0.90. CARDIOLOGY STUDIES: Electrocardiogram (10/17/2017 at 0732): Sinus rhythm, low voltage in extremity leads. IMPRESSION: 1. Acute respiratory failure. 2. Possible ALLERGY TO BACTRIM. 3. Elevated troponin/pqi-FY-nymyopbnq myocardial infarction. 4. Tobacco abuse. 5. Syncopal episode due to respiratory failure. 6. Chronic benzodiazepine use. 7. Lactic acidosis. 8. Chronic obstructive pulmonary disease. RECOMMENDATIONS: 1. Ms. Desai presented after respiratory failure, which may be due to an ALLERGY TO BACTRIM. She also had pruritus at that time. 2. She has since been extubated per the critical care team. 3. She did have an elevated troponin, which might be type 2 in nature due to her severe hypoxemia, as well as lactic acidosis. 4. I did discuss with her the consideration of further workup for an ischemic evaluation and we will plan on keeping her n.p.o. tonight with a pharmacologic nuclear stress test in the morning. 5. We will check a 2-Dimensional echocardiogram to look at her overall left ventricular function, cardiac structure and possible valvulopathies. 6. I spoke to her for greater than 3 minutes about tobacco cessation. 7. Further recommendations will be made based on the hospital course. Thank you for allowing me to see Vivienne Desai. If there are any questions, please do not hesitate to call. Pradip Lynn DO VGP/SA , 10:58 PM , 11:30 PM
[2017-10-18] VITALS (13 sets, daily range): BP systolic 122–149; BP diastolic 67–87; PULSE 73–112; RESP 15–20; TEMP 98.1–98.7; O2SAT 92–96
[2017-10-18] MEDS: RESP: ALBUTEROL 2.5 MG/IPRATROPIUM 0.5 MG NEB (SCH) INH ×5 (00:34→22:06)
[2017-10-18] MEDS: ACETAMINOPHEN 650 MG/20.3 ML UDC PO PRN ×2 (01:29→08:28)
[2017-10-18] MEDS: CHLORHEXIDINE GLUCONATE 2 % 1 PACK (2 CLOTHS) TOP SCH (04:00)
[2017-10-18] MEDS: CEFEPIME INJ 2,000 MG in SODIUM CHLORIDE 0.9% INJ 100 ML IV SCH ×3 (05:52→22:03)
[2017-10-18] MEDS: INSULIN NovoLIN REGULAR SUPPLEMENTAL SCALE SQ SCH ×2 (05:53→12:00)
[2017-10-18] MEDS: HEPARIN SODIUM - SQ 10,000 UNITS/ML VIAL SQ SCH ×3 (05:53→22:04)
[2017-10-18 07:05] LABS: CHOLESTEROL 109 MG/DL (120-200); TRIGLYCERIDES 78 MG/DL (42-150)
[2017-10-18 07:10] LABS: CHOLESTEROL/ HDL RATIO 2.55 RATIO; HDL CHOLESTEROL 42.7 MG/DL (40.0-60.0); LDL CHOLESTEROL 51 MG/DL (0-99)
[2017-10-18] MEDS: CHLORHEXIDINE 0.12% (ORAL KIT) 15 ML CUP MT SCH ×2 (08:00→20:00)
[2017-10-18] MEDS: LANSOPRAZOLE SOLUTAB 30 MG TAB G-TUBE SCH (08:17)
[2017-10-18] MEDS: methylPREDNISolone SOD SUCC 125 MG/2 ML VIAL IV PUSH SCH ×2 (08:17→22:04)
[2017-10-18] MEDS: ASPIRIN 81 MG CHEW TAB CHEW SCH (08:17)
[2017-10-18] MEDS: clonazePAM 1 MG TAB PO SCH ×2 (08:17→22:04)
[2017-10-18] MEDS: SODIUM CHLORIDE 0.9% FLUSH 10 ML FLUSH IV FLUSH SCH ×2 (08:17→22:04)
[2017-10-18] MEDS: REMOVE OLD PATCH T-DERMAL SCH (08:23)
[2017-10-18] MEDS: ARTIFICIAL TEARS OPTH SOLN 15 ML BTL EACH EYE SCH ×3 (08:23→18:00)
[2017-10-18] MEDS ORDERED: REGADENOSON INJ 0.4 MG/5 ML SYR ONE (11:32)
--- NOTE | 2017-10-18 11:51 | HHI.CCPN ---
Subjective Remarks/Hospital Course This is a 67-year-old female. Actual name is Vivienne Desai. She is 67 years old. Date of admission 10/16/2017. Past medical history includes COPD/ongoing tobaccoism, chronic benzodiazepine use and low back pain. She presents to [facility] following history. Today, patient went to the physician's office where she received a prescription for sulfamethoxazole/ trimethoprim and received an injectable antibiotic. She and her significant other went to lunch this afternoon patient became acutely short of breath after ingesting her Bactrim and complained of pruritis. At some point she "passed out ". When EVAC right patient has saturations in the 50s. Patient received etomidate and midazolam for intubation. Patient also received 0.4 mg of naloxone with minimal response. Chest x-ray revealed hyperinflated lungs with no acute findings. Patient is a pending CT brain and CT pulmonary antrum pending. PH revealed 7.32, PCO2 48.5. PO2 of 204. Bicarbonate of 25. Base index -1. Laboratories reveal leukocytosis, blood sugar greater than 200, urine drug screen positive for benzodiazepines only. She is currently requiring 3 sedative /analgesics at the present time on the ventilator SUBJ 10/17: Remains intubated sedated. Currently on Precedex but wakes up easily following commands. Tolerating CPAP 10/18: Extubated yesterday tolerating well, lying comfortably in bed. Scheduled for nuclear stress test today. Troponin downtrending. Denies chest pain Objective Vital Signs Date Time Temp Pulse Resp B/P (MAP) Pulse Ox O2 Delivery O2 Flow Rate FiO2 10/18/17 08:00 110 10/18/17 08:00 98.1 15 141/67 (91) 95 10/18/17 07:44 Nasal Cannula 3.00 10/17/17 19:30 21 Result Diagram: 10/17/17 0413 10/17/17 0413 Other Results Microbiology Date/Time Source Procedure Growth Status 10/16/17 22:35 Nasal Aspirate Influenza Types A,B Antigen (NAZ) - Final NEGATIVE FOR FLU A AND B ANTIGEN.... Complete 10/16/17 21:00 Urine Catheterized Urine Legionella Antigen - Final PRESUMPTIVE NEGATIVE FOR LEGIONELLA P... Complete 10/16/17 21:00 Urine Catheterized Urine Streptococcus pneumoniae Antigen (M - Final PRESUMPTIVE NEGATIVE FOR STREPTOCOCCU... Complete Imaging Last Impressions Chest X-Ray 10/16/172051 Signed Impressions: CONCLUSION: Endotracheal tube tip 2 cm above the manuel. Objective Remarks GENERAL: 67-year-old female currently on NC SKIN: Warm and dry. No rash ecchymoses bilateral upper extremities HEAD: Atraumatic. Normocephalic. EYES: Pupils equal and round. About 3 mm bilaterally and reactive no scleral icterus. No injection or drainage. ENT: No nasal bleeding or discharge. NECK: Trachea midline. No JVD. CARDIOVASCULAR: Tachycardic, RR. S1, S2 no S4. Without murmur RESPIRATORY: Diminished breath sounds but essentially clear to auscultation anteriorly. GASTROINTESTINAL: Abdomen soft, non-tender, nondistended. MUSCULOSKELETAL: Extremities without significant peripheral edema. No obvious deformities. NEUROLOGICAL: Alert awake oriented 3. No focal deficits, moves all 4 extremities spontaneously A/P Assessment and Plan Neuro/Psych: Chronic benzodiazepine use Altered mental status-resolved Minimize all sedation Acetaminophen 650 mg by tube every 6 hours as needed fever CT brain negative for acute finding Patient is on clonazepam 1 mg twice daily at home CV: Elevated troponin/NSTEMI Sinus tachycardia Lactic acidosis Troponin peaked at 0.90. Now down trending Continue scheduled aspirin and Lipitor. Start carvedilol 3.125 mg twice daily after stress test Cardiology Dr. Lynn. Echo normal with no RWMA Resp: Acute hypoxic respiratory failure-resolved COPD with exacerbation Ongoing tobaccoism Albuterol/ipratropium aerosols every 6 hours with albuterol aerosols every 2 hours as needed dyspnea IV Solu Medrol 60 every 12 for COPD exacerbation. Change to p.o. prednisone Add Symbicort Chest x-ray revealed no acute cardiopulmonary findings. ET tube [address] pulmonary angiogram ordered by ER physician-lingular infiltrate, basilar mucous plugging and chronic bronchiectasis Tobacco cessation self-evaluation but will be provided to patient GI: Hypoalbuminemia Heart healthy diet Lansoprazole for GI prophylaxis Docusate sodium/senna 1 tablet twice daily for bowel regimen Endo: Hyperglycemia Sliding scale insulin with Novolin with Accu-Cheks every 6 hours to maintain euglycemia/medium regimen Renal: Creatinine currently within normal limits Monitor urine output Accurate I's and O Heme: Leukocytosis Monitor CBC in a.m. Check coags ID: Community acquired pneumonia Currently on cefepime and azithromycin day #3 Blood cultures 2, sputum and influenza follow up UA no acute findings for infection FEN: Hypopotassemia Replace electrolytes per ICU electrolyte protocol MSK: Chronic thoracic back pain PT evaluate and treat Access -Utilize peripheral IV. Central line if indicated Prophylax -GI -lansoprazole -DVT -SCD/Lovenox 40 mg daily Level 2 Transfer to Med Surg after stress test. Consult hospitalist to assume care 10/19 Rodger Parsons MD Oct 18, 2017 11:51
--- NOTE | 2017-10-18 12:03 | PD.CARD.PN ---
Subjective Subjective Remarks No events overnight Feels overall well, no complaints Objective Medications Current Medications Medications (Trade) Dose Ordered Sig/Ta Route Start Time Stop Time Status Last Admin (NS Flush) 2 ml UNSCH PRN IV FLUSH 10/16/17 22:30 (NS Flush) 2 ml BID IV FLUSH 10/17/17 09:00 10/18/17 08:17 (Prevacid Odt) 30 mg DAILY G-TUBE 10/17/17 09:00 10/18/17 08:17 (Tears Naturale Opth Soln) 1 drop TID EACH EYE 10/17/17 09:00 (Zofran Odt) 4 mg Q6H PRN PO 10/16/17 22:30 (Albuterol Neb) 2.5 mg Q2HR NEB PRN INH 10/16/17 22:30 [place] [place] 1 Q361D XX 10/16/17 22:30 10/16/17 22:30 (Chlorhexidine 2% Cloth) 3 pack Taper DAILY@04 TOP 10/17/17 04:00 10/13/18 03:59 10/18/17 04:00 (Chlorhexidine 2% Cloth) 3 pack UNSCH PRN TOP 10/16/17 22:30 (Patsy-Colace) 1 tab BID PO 10/17/17 09:00 10/17/17 08:21 (Milk Of Magnesia Liq) 30 ml Q12H PRN PO 10/16/17 22:30 (Senokot) 17.2 mg Q12H PRN PO 10/16/17 22:30 (Dulcolax Supp) 10 mg DAILY PRN RECTAL 10/16/17 22:30 (Lactulose Liq) 30 ml DAILY PRN PO 10/16/17 22:30 (D50w (Vial) Inj) 50 ml UNSCH PRN IV PUSH 10/16/17 22:30 (Glucagon Inj) 1 mg UNSCH PRN OTHER 10/16/17 22:30 (NovoLIN R SUPPLEMENTAL SCALE) 1 Q6HR SQ 10/17/17 00:00 (Tylenol 650 Mg/ 20 ml Liq) 650 mg Q6H PRN PO 10/16/17 22:30 10/18/17 08:28 Potassium Chloride 100 ml @ 50 mls/hr Q2H PRN IV 10/16/17 22:30 Potassium Chloride 100 ml @ 50 mls/hr Q2H PRN IV 10/16/17 22:30 (K-Lyte Cl Eff) 50 meq UNSCH PRN PO 10/16/17 22:30 Potassium Chloride 100 ml @ 25 mls/hr UNSCH PRN IV 10/16/17 22:30 Potassium Chloride 100 ml @ 50 mls/hr Q2H PRN IV 10/16/17 22:30 10/17/17 01:30 Magnesium Sulfate 4 gm/Sodium Chloride 100 ml @ 50 mls/hr UNSCH PRN IV 10/16/17 22:30 (Mag-Ox) 800 mg UNSCH PRN PO 10/16/17 22:30 Magnesium Sulfate 2 gm/Sodium Chloride 100 ml @ 50 mls/hr UNSCH PRN IV 10/16/17 22:30 (K-Phos) 2,000 mg Q4H PRN PO 10/16/17 22:30 Sodium Phosphate 30 mmol/Sodium Chloride 250 ml @ 42 mls/hr UNSCH PRN IV 10/16/17 22:30 (K-Phos) 2,000 mg UNSCH PRN PO/TUBE 10/16/17 22:30 Potassium Phosphate 30 mmol/ Sodium Chloride 260 ml @ 42 mls/hr UNSCH PRN IV 10/16/17 22:30 Cefepime HCl 2000 mg/Sodium Chloride 100 ml @ 200 mls/hr Q8H IV 10/16/17 22:30 10/18/17 05:52 Azithromycin 500 mg/Sodium Chloride 250 ml @ 250 mls/hr Q24H IV 10/16/17 23:00 10/20/17 22:59 10/17/17 21:43 (Peridex 0.12% Liq) 15 ml BID@08,20 MT 10/17/17 08:00 10/17/17 08:21 Propofol 100 ml @ 1.35 mls/hr TITRATE PRN IV 10/16/17 22:30 Midazolam HCl 50 ml @ 2 mls/hr TITRATE PRN IV 10/16/17 22:30 10/17/17 02:21 Fentanyl Citrate 250 ml @ 5 mls/hr TITRATE PRN IV 10/16/17 22:30 (Heparin Inj) 5,000 units Q8HR SQ 10/17/17 06:00 10/17/17 21:43 Dexmedetomidine HCl 200 mcg/ Sodium Chloride 52 ml @ 2.34 mls/hr TITRATE PRN IV 10/17/17 04:30 10/17/17 06:01 (Aspirin Chew) 81 mg DAILY CHEW 10/17/17 09:00 10/18/17 08:17 (Lipitor) 40 mg HS PO 10/17/17 21:00 10/17/17 19:48 (SoluMEDROL INJ) 60 mg Q12H IV PUSH 10/17/17 08:00 10/18/17 08:17 (Habitrol 14 Mg Patch.24 Hr) 1 patch DAILY T-DERMAL 10/17/17 10:45 10/17/17 11:28 Miscellaneous Information 1 DAILY T-DERMAL 10/17/17 10:45 10/18/17 08:23 (KlonoPIN) 1 mg BID PO 10/17/17 21:30 10/18/17 08:17 (Coreg) 3.125 mg Q12HR PO 10/18/17 11:45 UNV (Duoneb Neb) 1 ampule Q6HR NEB INH 10/18/17 16:00 UNV Vital Signs / I&O Vital Signs Date Time Temp Pulse Resp B/P (MAP) Pulse Ox O2 Delivery O2 Flow Rate FiO2 10/18/17 08:00 110 10/18/17 08:00 98.1 101 15 141/67 (91) 95 10/18/17 07:44 92 Nasal Cannula 3.00 10/18/17 06:00 103 10/18/17 04:00 104 10/18/17 04:00 98.2 104 20 124/68 (86) 96 10/18/17 02:00 110 10/18/17 00:00 98.7 103 19 122/71 (88) 95 10/18/17 00:00 103 10/17/17 22:00 106 10/17/17 20:00 98.4 116 31 135/103 (114) 92 10/17/17 20:00 116 10/17/17 19:48 92 Nasal Cannula 3.00 10/17/17 19:30 93 21 10/17/17 18:00 112 10/17/17 16:30 98 19 108/59 (75) 95 10/17/17 16:00 100 10/17/17 16:00 100 18 115/60 (78) 96 10/17/17 14:00 103 10/17/17 14:00 103 10/17/17 13:30 107 10/17/17 13:00 104 10/17/17 12:57 103 10/17/17 12:00 100 23 118/65 (82) 96 10/17/17 12:00 100 10/17/17 12:00 100 I/O 10/17/17 10/17/17 10/17/17 10/18/17 10/18/17 10/18/17 07:00 15:00 23:00 07:00 15:00 23:00 Intake Total 5000 ml 19 ml 980 ml Output Total 540 ml 1600 ml Balance 4460 ml 19 ml -620 ml Intake Oral 980 ml IV Total 5000 ml 19 ml Output Urine Total 450 ml 1600 ml Gastric Drainage Total 90 ml # Voids 6 # Bowel Movements 0 0 Physical Exam GENERAL: NAD, AAOx3 SKIN: Warm and dry. HEAD: Atraumatic. Normocephalic. EYES: Pupils equal and round. No scleral icterus. No injection or drainage. ENT: No nasal bleeding or discharge. Mucous membranes pink and moist. NECK: Trachea midline. No JVD. CARDIOVASCULAR: Regular rate and rhythm. Mildly tachycardia RESPIRATORY: No accessory muscle use. Decreased breath sounds GASTROINTESTINAL: Abdomen soft, non-tender, nondistended. Hepatic and splenic margins not palpable. MUSCULOSKELETAL: Extremities without clubbing, cyanosis, or edema. No obvious deformities. NEUROLOGICAL: Awake and alert. No obvious cranial nerve deficits. Motor grossly within normal limits. Five out of 5 muscle strength in the arms and legs. Normal speech. PSYCHIATRIC: Appropriate mood and affect; insight and judgment normal. Laboratory Laboratory Tests Test 10/18/17 06:19 Triglycerides Level 78 MG/DL Cholesterol Level 109 MG/DL LDL Cholesterol 51 MG/DL HDL Cholesterol 42.7 MG/DL Cholesterol/HDL Ratio 2.55 RATIO Assessment and Plan Problem List: (1) Acute respiratory failure with hypoxia ICD Codes: J96.01 - Acute respiratory failure with hypoxia (2) Chronic prescription benzodiazepine use ICD Codes: Z79.899 - Other terminal carman (current) drug therapy (3) Elevated troponin ICD Codes: R74.8 - Abnormal levels of other serum enzymes (4) Tobacco abuse ICD Codes: Z72.0 - Tobacco use (5) Lactic acidosis ICD Codes: E87.2 - Acidosis (6) Leukocytosis ICD Codes: D72.829 - Elevated white blood cell count, unspecified (7) Chronic low back pain ICD Codes: M54.5 - Low back pain; G89.29 - Other chronic pain Assessment and Plan 1) Acute respiratory failure Possible allergy to Bactrim Extubated 2) Elevated troponin Possible type 2 due to severe hypoxemia/lactic acidosis Plan for stress test today If positive, will plan on cath on Saturday Otherwise, no further cardiovascular work up EF 60-65% 3) Tobacco cessation Problem Qualifiers (1) Leukocytosis: Qualified Codes: D72.829 - Elevated white blood cell count, unspecified (2) Chronic low back pain: Qualified Codes: M54.5 - Low back pain; G89.29 - Other chronic pain Pradip Lynn DO Oct 18, 2017 12:03
--- NOTE | 2017-10-18 13:30 | RADRPT ---
EXAM DATE: 10/18/2017 12:37 PM EDT AGE/SEX: 67 years / Female INDICATIONS:Angina. . Respiratory failure with elevated troponin. CLINICAL DATA: This is the patient's initial encounter. Patient reports that signs and symptoms have been present for 3 days and indicates a pain score of 0/10. MEDICAL/SURGICAL HISTORY: Chronic obstructive pulmonary disease. Hysterectomy. Left salivary gl and tumor removal. [place] [facility] [place]. . DOSE: 8.5 mCi Tc 99m Myoview at rest 25.4 mCi [id number] at stress 0.4 mg Lexiscan STRESS SYMPTOMS: Chest pain, headache and dyspnea. EJECTION FRACTION: 62 % TECHNIQUE: The patient underwent pharmacologic stress with infusion of prescribed dose. Continuous ECG tracing was monitored during stress. Gated SPECT imaging was performed after stress and conventi onal SPECT imaging was performed at rest. The examination was performed on a SPECT/CT scanner, both attenuation and non-corrected datasets were reviewed. FINDINGS: Distribution: The maximum perfused segment at stress is in the anterior wall. Perfusion Study: The examination demonstrates a moderate in severity, fixed perfusion defect involv ing the inferior wall. I do not see an associated wall motion abnormality however this would be tamela rning for an old area of infarct. No reversible perfusion defect is identified. Gated Study: There are intact wall motion and wall thickening without hypokinetic or dyskinetic segm ents. The ejection fraction is calculated at 62%. RISK CATEGORY: High (>3% Annual Morality Rate) CONCLUSION: 1. There is a large fixed perfusion defect inferiorly. Old area of infarct is not excluded. There is no associated wall motion abnormality. The ejection fraction is within normal limits. 2. No reversible perfusion defect to indicate stress-induced myocardial ischemia identified. Electronically signed by: Francisco Holden MD 10/18/2017 1:29 PM EDT
[2017-10-18] MEDS: DOCUSATE SODIUM 50 MG/SENNA 8.6 MG TAB PO SCH ×2 (14:09→22:03)
[2017-10-18] MEDS: NICOTINE 14 MG/24 HR PATCH T-DERMAL SCH (14:10)
[2017-10-18] MEDS: CARVEDILOL 3.125 MG TAB PO SCH ×2 (14:14→22:03)
[2017-10-18] MEDS: ATORVASTATIN 40 MG TAB PO SCH (22:03)
[2017-10-18 22:45] LABS: HEMOGLOBIN A1C 5.4 % (4.3-6.0)
[2017-10-19] VITALS: BP 146/74; PULSE 101; PULSE 99; RESP 18; TEMP 97.7; O2SAT 97
[2017-10-19] MEDS: CHLORHEXIDINE GLUCONATE 2 % 1 PACK (2 CLOTHS) TOP SCH (03:11)
[2017-10-19 04:00] VITALS: BP 161/94; PULSE 90; PULSE 91; RESP 18; TEMP 97.8; O2SAT 97
[2017-10-19] MEDS: RESP: ALBUTEROL 2.5 MG/IPRATROPIUM 0.5 MG NEB (SCH) INH ×2 (05:35→10:38)
[2017-10-19] MEDS: CEFEPIME INJ 2,000 MG in SODIUM CHLORIDE 0.9% INJ 100 ML IV SCH (05:57)
[2017-10-19] MEDS: HEPARIN SODIUM - SQ 10,000 UNITS/ML VIAL SQ SCH (05:57)
[2017-10-19] MEDS ORDERED: FUROSEMIDE 20 MG/2 ML VIAL IV PUSH ONE (06:30)
--- NOTE | 2017-10-19 07:00 | RADRPT ---
EXAM DATE: 10/19/2017 6:40 AM EDT AGE/SEX: 67 years / Female INDICATIONS: Shortness of breath CLINICAL DATA: This is the patient's initial encounter. Patient reports that signs and symptoms have been present for 1 day and indicates a pain score of 0/10. MEDICAL/SURGICAL HISTORY: Chronic obstructive pulmonary disease. None. COMPARISON: [facility] [place], CHEST SINGLE AP, 10/17/2017. . FINDINGS: A single AP view of the chest demonstrates right lower lobe density. Minimal density also in the left lower lobe. Heart normal in size. The cardiomediastinal contours are unremarkable. Osseous structur es are intact. CONCLUSION: Bibasilar densities could be atelectasis or infiltrate. Electronically signed by: Liban Can MD 10/19/2017 6:58 AM EDT
[2017-10-19 08:00] VITALS: BP 157/89; PULSE 86; PULSE 93; RESP 18; TEMP 98; O2SAT 97
[2017-10-19] MEDS: ARTIFICIAL TEARS OPTH SOLN 15 ML BTL EACH EYE SCH (09:00)
[2017-10-19] MEDS: SODIUM CHLORIDE 0.9% FLUSH 10 ML FLUSH IV FLUSH SCH (09:00)
[2017-10-19] MEDS: NICOTINE 14 MG/24 HR PATCH T-DERMAL SCH (09:00)
[2017-10-19] MEDS: DOCUSATE SODIUM 50 MG/SENNA 8.6 MG TAB PO SCH (09:07)
[2017-10-19] MEDS: LANSOPRAZOLE SOLUTAB 30 MG TAB G-TUBE SCH (09:07)
[2017-10-19] MEDS: clonazePAM 1 MG TAB PO SCH (09:07)
[2017-10-19] MEDS: ASPIRIN 81 MG CHEW TAB CHEW SCH (09:07)
[2017-10-19] MEDS: CARVEDILOL 3.125 MG TAB PO SCH (09:07)
[2017-10-19] MEDS: methylPREDNISolone SOD SUCC 125 MG/2 ML VIAL IV PUSH SCH (09:08)
[2017-10-19] MEDS ORDERED: ASPI81 CHEW (10:37)
[2017-10-19] MEDS ORDERED: NICO14DI23 T-DERMAL (10:37)
[2017-10-19] MEDS ORDERED: ATOR40TA16 PO (10:37)
[2017-10-19] MEDS ORDERED: PRED10PA2 PO (10:37)
[2017-10-19] MEDS ORDERED: CARV3.125 PO (10:37)
[2017-10-19] MEDS ORDERED: OXYGENDME NAS.CANULA (10:37)
--- NOTE | 2017-10-19 10:40 | HHI.DCPOC ---
Discharge Care Plan Diagnosis: (1) NSTEMI (non-ST elevated myocardial infarction) (2) Encephalopathy acute (3) Chronic prescription benzodiazepine use (4) Lactic acidosis (5) COPD exacerbation (6) COPD with exacerbation (7) Tobacco abuse (8) Anaphylaxis (9) Electrolyte abnormality Goals to Promote Your Health * To prevent worsening of your condition and complications * To maintain your health at the optimal level Directions to Meet Your Goals Take your medications as prescribed Follow your dietary instruction Follow activity as directed Keep your appointments as scheduled Take your immunizations and boosters as scheduled If your symptoms worsen call your PCP, if no PCP go to Urgent Care Center or Emergency Room Smoking is Dangerous to Your Health. Avoid second hand smoke Call the 24-hour hour crisis hotline for domestic abuse at Baldemar Lopez MD Oct 19, 2017 10:40
[2017-10-19] MEDS ORDERED: CEFU1TAB20 PO (10:41)
[2017-10-19 10:46] VITALS: O2SAT 96
[2017-10-19] MEDS ORDERED: FURO20TA PO (10:48)
--- NOTE | 2017-10-19 10:50 | HHI.DS ---
Discharge Summary Admission Date Oct 16, 2017 at 22:59 Discharge Date: Oct 19, 2017 Admitting Diagnosis Acute hypoxic respiratory failure (1) Acute respiratory failure with hypoxia ICD Code: J96.01 - Acute respiratory failure with hypoxia Diagnosis: Principal (2) Hypokalemia ICD Code: E87.6 - Hypokalemia Diagnosis: Principal Status: Resolved (3) Hypoalbuminemia ICD Code: E88.09 - Other disorders of plasma-protein metabolism, not elsewhere classified Diagnosis: Secondary (4) Lactic acidosis ICD Code: E87.2 - Acidosis Diagnosis: Principal Status: Resolved (5) Hyperglycemia ICD Code: R73.9 - Hyperglycemia, unspecified Diagnosis: Principal Status: Resolved (6) Leukocytosis ICD Code: D72.829 - Elevated white blood cell count, unspecified Diagnosis: Principal Status: Resolved (7) COPD (chronic obstructive pulmonary disease) ICD Code: J44.9 - Chronic obstructive pulmonary disease, unspecified Diagnosis: Principal Status: Acute (8) Tobacco abuse ICD Code: Z72.0 - Tobacco use Diagnosis: Principal (9) Chronic low back pain ICD Code: M54.5 - Low back pain; G89.29 - Other chronic pain Diagnosis: Secondary (10) Chronic prescription benzodiazepine use ICD Code: Z79.899 - Other jail (current) drug therapy Diagnosis: Secondary Procedures None Brief History - From Admission This is a 67-year-old female. Actual name is Vivienne Desai. She is 67 years old. The admission 10/16/2017. Past medical history includes COPD/ ongoing tobaccoism, chronic benzodiazepine use and low back pain. She presents to [facility] following history. Today, patient went to the physician's office where she received a prescription for sulfamethoxazole/trimethoprim and received an injectable antibiotic. She and her significant other went to lunch this afternoon patient became acutely short of breath after ingesting her Bactrim and complained of pruritis. At some point she "passed out". When EVAC right patient has saturations in the 50s. Patient received etomidate and midazolam for intubation. Patient also received 0.4 mg of naloxone with minimal response. Chest x-ray revealed hyperinflated lungs with no acute findings. Patient is a pending CT brain and CT pulmonary antrum pending. PH revealed 7.32, PCO2 48.5. PO2 of 204. Bicarbonate of 25. Base index -1. Laboratories reveal leukocytosis, blood sugar greater than 200, urine drug screen positive for benzodiazepines only. She is currently requiring 3 sedative /analgesics at the present time on the ventilator CBC/BMP: 10/17/17 0413 10/17/17 0413 Significant Findings Laboratory Tests Test 10/16/17 21:00 10/16/17 21:53 10/16/17 22:21 10/16/17 23:58 White Blood Count 11.3 TH/MM3 (4.0-11.0) Urine Turbidity CLOUDY (CLEAR) Urine Occult Blood SMALL (NEG) Urine RBC 8 /hpf (0-3) Urine Mucus FEW /lpf (OCC) Random Glucose 244 MG/DL (74-106) Albumin 3.1 GM/DL (3.4-5.0) Calcium Level 7.9 MG/DL (8.5-10.1) Potassium Level 3.4 MEQ/L (3.5-5.1) Carbon Dioxide Level 20.2 MEQ/L (21.0-32.0) Estimat Glomerular Filtration Rate 58 ML/MIN (>89) Acetaminophen Level LESS THAN 2.0 MCG/ML Urine Benzodiazepines Screen POS (NEG) Lactic Acid Level 4.8 mmol/L (0.4-2.0) Arterial Blood pH 7.33 (7.380-7.420) Arterial Blood Partial Pressure CO2 49 mmHg (38-42) Arterial Blood Partial Pressure O2 204 mmHG (61-120) Test 10/17/17 04:13 10/17/17 09:02 10/17/17 11:30 10/18/17 06:19 White Blood Count 13.8 TH/MM3 (4.0-11.0) Red Blood Count 3.56 MIL/MM3 (4.00-5.30) Hemoglobin 11.3 GM/DL (11.6-15.3) Hematocrit 34.6 % (35.0-46.0) Neutrophils (%) (Auto) 76.5 % (16.0-70.0) Neutrophils # (Auto) 10.5 TH/MM3 (1.8-7.7) Monocytes # (Auto) 1.0 TH/MM3 (0-0.9) Total Protein 5.4 GM/DL (6.4-8.2) Albumin 2.4 GM/DL (3.4-5.0) Calcium Level 7.1 MG/DL (8.5-10.1) Chloride Level 111 MEQ/L (98-107) Protein Corrected Calcium 8.0 MG/DL (8.5-10.1) Troponin I 0.90 NG/ML (0.02-0.05) 0.47 NG/ML (0.02-0.05) Cholesterol Level 95 MG/DL (120-200) 109 MG/DL (120-200) HDL Cholesterol 35.9 MG/DL (40.0-60.0) Blood Gas Base Excess -2.5 mmol/L (-2-2) Arterial Blood pH 7.35 (7.380-7.420) Blood Gas Hemoglobin 11.9 G/DL (12.0-16.0) Imaging Last Impressions Chest X-Ray 10/19/17 Signed Impressions: CONCLUSION: Bibasilar densities could be atelectasis or infiltrate. Myocardial Perfusion Scan Nuc Med 10/18/17 Signed Impressions: CONCLUSION: 1. There is a large fixed perfusion defect inferiorly. Old area of infarct is not excluded. There is no associated wall motion abnormality. The ejection frac tion is within normal limits. 2. No reversible perfusion defect to indicate stress-induced myocardial ischem ia identified. Head CT 10/16/172051 Signed Impressions: CONCLUSION: 1. Negative CT Head non contrast. CT Angiography 10/16/17 Signed Impressions: CONCLUSION: 1. Rounded infiltrate within the lingula. No evidence of pulmonary embolism. C hronic bronchiectasis and bilateral mucous plugging in the medial lung bases. PE at Discharge AAOx3 NAD Clear lungs BL, no wheezing or rhonchi. abdomen soft, nt, nd no edema in lower extremities Pt update on day of discharge The patient denies chest pain or shortness of breath. The patient wants to go home. Hospital Course The patient was initially admitted to the intensive care unit. Patient came in with acute hypoxic respiratory failure, COPD exacerbation for which the patient was intubated and sedated, treated with albuterol/ipratropium aerosols, IV steroids, Symbicort added. Chest x-ray revealed no acute cardiopulmonary findings. CT pulmonary angiogram ordered by ED physician showed a lingular infiltrate for which the patient was treated with IV antibiotics. It also showed a basilar mucus plugging and chronic bronchiectasis. The patient was then extubated and transferred to the floor. The patient also has history of chronic benzodiazepine use and had encephalopathy. Hypoxic respiratory failure could possibly secondary to anaphylactic reaction after Bactrim ingestion. Patient also was found to have elevated troponins likely a NSTEMI secondary to demand ischemia. Cardiology was consulted. Stress test was ordered and it was negative. Respiratory walk test was done and the patient decided down to the mid 80s of oxygen. The patient will be discharged home with home oxygen and transition to oral antibiotics as well as oral steroid taper. Pt Condition on Discharge: Stable Discharge Disposition: Disch w/ Home Health Serv Discharge Time: > 30 minutes Discharge Instructions DIET: Follow Instructions for: Heart Healthy Diet Activities you can perform: Regular-No Restrictions, See Additionl Instruction Other Activity Instructions: A per Physical therapy instruction. Follow up Referrals: PCP Follow-up - 2 Weeks New Medications: Cefuroxime (Cefuroxime) 500 Mg Tab 500 MG PO BID for Infection, #28 TAB 0 Refills Oxygen (O2) (Oxygen (O2)) Device LITER STEPHAN.CANULA CONTINUOUS for Prevent Hypoxemia, #3 Oxygen Concentrator Portable Gaseous 3 L/min via Nasal Canula Continuous For 99 months Prednisone (48) 10 mg tab Dose Pack (Prednisone (48) 10 mg tab Dose Pack) 10 Mg Dspk 10 MG PO DIRECTED for Inflammation, #1 DSPK 0 Refills Aspirin (Tgt Aspirin) 81 Mg Chw 81 MG CHEW DAILY for Blood Clot Prevention, #30 EA Atorvastatin (Atorvastatin) 40 Mg Tab 40 MG PO HS for Cholesterol Management, #30 TAB Carvedilol (Coreg) 3.125 Mg Tab 3.125 MG PO Q12HR for Blood Pressure Management, #62 TAB Nicotine (Eq Nicotine) 14 Mg/24 Hour Dis 1 PATCH T-DERMAL DAILY for smoking cessation, #14 PATCH Continued Medications: Albuterol 6.7 GM Inh (Proventil Hfa 6.7 GM Inh) 90 Mcg/Act Aer 2 PUFF INH Q4-6H PRN for SHORTNESS OF BREATH, #1 INHALER 0 Refills Clonazepam (Klonopin) 1 Mg Tab 1 MG PO BID, #60 TAB 0 Refills Baldemar Lopez MD Oct 19, 2017 10:50
[2017-10-19 12:00] VITALS: BP 172/97; PULSE 94; RESP 18; TEMP 97.8; O2SAT 95
--- NOTE | 2017-10-19 13:25 | PQ ---
Physician Query Response Document PATIENT: MADAN BLUE : 1950 ADMIT DATE: 10/16/2017 10:59 PM DISCH DATE: RESPONDING PROVIDER #: [email or web address] QUERY TEXT: CDS Clarification Anaphylactic reaction due to adverse effect of Bactrim, initial encounter in setting of Acute Respira tory failure requiring treatment with intubation/ mechanical ventilation Other explanation of clinical findings. Unable to determine (no explanation for clinical findings). The patient's Clinical Indicators include: The medical record reflects the following clinical findings, treatment, and risk factors. * Clinical Indicators - Found unresponsive, O2 saturation in 50s per EMS report, intubated in the fie ld by EMS, patient described SOB/ pruitis after ingesting Bactrim * Risk Factors - Took prescribed Bactrim dose prior to becoming unresponsive * Treatment - Intubation and Mechanical ventilation Please clarify and document your clinical opinion in the progress notes and discharge summary includi ng the definitive and/or presumptive diagnosis (suspected or probable), related to the above clinical findings. Please include clinical findings supporting your diagnosis. Thank you, Giselle Jurado CDS: Giselle Jurado Contact Number: [email or web address] BLOCKER ext. [phone] Query created by: Giselle Jurado on 10/18/2017 9:40 AM RESPONSE TEXT: Probable anaphylaxis and airway obstruction with Bactrim Electronically signed by: Rodger Parsons MD 10/19/2017 1:21 PM
--- NOTE | 2017-10-19 15:43 | HHI.FF ---
Face to Face Verification Diagnosis: (1) Anaphylaxis (2) Tobacco abuse (3) Encephalopathy acute (4) NSTEMI (non-ST elevated myocardial infarction) (5) COPD with exacerbation (6) Chronic prescription benzodiazepine use (7) Tobacco abuse (8) Acute respiratory failure with hypoxia Physical Therapy Order: Improve ambulation, Strength and gait training Home Health Nursing Order: Oxygen administration education Nursing assessment with vital signs I have seen patient Vivienne Desai on 10/19/17. My clinical findings support the need for the requested home health care services because: Patient has SOB Deconditioned w/ increased weakness Need for psychosocial assistance I certify that my clinical findings support that this patient is homebound because: Hx COPD- exertion dyspnea/weakness Unsteady gait/balance Unsafe to leave home unassisted Unable to use public transportation Baldemar Lopez MD Oct 19, 2017 15:43
== END 2017-10-19 13:46 | disposition home health service (06) | DRG 915 ==
LOC: NEPE 20:46 → NEDA 22:59 → EDBD 22:59 → HIMN 23:55 → N04A 10-18 16:03
PROVIDERS: ADMIT Hospitalist; ATTEND Hospitalist
PROC: 5A1935Z Respiratory Ventilation, Less than 24 Consecutive Hours (ICD-10-PCS; principal; 2017-10-16)
PROC: 0T9B70Z Drainage of Bladder with Drainage Device, Via Natural or Artificial Opening (ICD-10-PCS; 2017-10-16)
PROC: 0BP1XDZ Removal of Intraluminal Device from Trachea, External Approach (ICD-10-PCS; 2017-10-17)
DX: T88.6XXA Anaphylactic reaction due to adverse effect of correct drug or medicament properly administered, initial encounter (principal); J96.01 Acute respiratory failure with hypoxia; I21.A1 Myocardial infarction type 2; G93.40 Encephalopathy, unspecified; J18.9 Pneumonia, unspecified organism; J47.0 Bronchiectasis with acute lower respiratory infection; E87.2 Acidosis; J44.0 Chronic obstructive pulmonary disease with (acute) lower respiratory infection; J44.1 Chronic obstructive pulmonary disease with (acute) exacerbation; N39.0 Urinary tract infection, site not specified; I95.9 Hypotension, unspecified; E87.6 Hypokalemia; E88.09 Other disorders of plasma-protein metabolism, not elsewhere classified; T37.0X5A Adverse effect of sulfonamides, initial encounter; R73.9 Hyperglycemia, unspecified; G89.29 Other chronic pain; M54.6 Pain in thoracic spine; M54.5 Low back pain; F13.90 Sedative, hypnotic, or anxiolytic use, unspecified, uncomplicated; R00.0 Tachycardia, unspecified; L29.9 Pruritus, unspecified; J98.4 Other disorders of lung; D72.829 Elevated white blood cell count, unspecified; R55 Syncope and collapse; F17.200 Nicotine dependence, unspecified, uncomplicated; Z79.899 Other long term (current) drug therapy; Z82.49 Family history of ischemic heart disease and other diseases of the circulatory system; Z80.8 Family history of malignant neoplasm of other organs or systems
CPT/HCPCS: 36600; 51702; 70450; 71045; 71275; 78452; 80053; 80061; 80307; 81001; 82550; 82552; 82805; 82948; 83036; 83605; 83690; 83735; 84100; 84484; 85025; 85610; 85730; 87040; 87070; 87205; 87449; 87641; 87804; 93005; 93017; 93306; 94002; 94003; 94150; 94618; 94640; 94664; 96365; 96375; A9502; J0456; J0610; J0692; J1644; J1940; J2250; J2785; J2930; J3010; J3370; J3480; J7030; J7050; J7120; P9047; Q9967